=== PATIENT | male | born 2000 | race Two or more races ===

== ENCOUNTER 2025-03-15 01:40 | Inpatient (IN) ==
--- NOTE | 2025-03-15 01:57 | Emergency Department Note ---
Impression & Plan Dental abscess Admission ED Provider Note HPI: History obtained from patient. The patient is a 24-year-old gentleman who presents the emergency department from [facility] over concern for left-sided facial swelling for the past 4 days. Patient states he has had some increased pain and swelling to the left cheek over the past 4 days. He states he has also had an ache in the upper part of his jaw with possible dental infection. Patient states that is to the point where he is having difficulty opening his mouth now. On arrival here to the ED the patient is mildly tachycardic but otherwise hemodynamically stable, he is afebrile on arrival, he is saturating well on room air without increased work of breathing. ROS: - Per HPI Differential Diagnosis: Facial cellulitis, dental abscess, sialoadenitis, peritonsillar abscess, parotiditis, amongst other potential pathologies. *Outpatient medications and allergy history reviewed. PE: General: Alert HEENT: Normocephalic, trachea midline, the left cheek is grossly swollen in comparison to the right, patient has some difficulty opening his mouth, appears to be tolerating his own secretions without issue Eyes: Extraocular eye movement is intact, no scleral erythema Pulmonary: Clear to auscultation bilaterally, no wheezing, no respiratory distress or tachypnea Cardio: Regular rate and rhythm GI: Abdomen is soft to palpation : No suprapubic tenderness MSK: No evidence of trauma or malformation of the extremities, no edema Skin: No evidence of rash Neuro: Alert, no focal deficits Psychiatric: Cooperative INDEPENDENT INTERPRETATIONS: vehicle monitor technician: (As interpreted by myself): - An order was placed for continuous cardiac monitoring - Patient was noted to be in sinus rhythm with a rate of 103 Interventions provided in ED: - IV fluid bolus, IV morphine, IV Zofran, IV Unasyn Medical Decision Making: IV was established and lab work obtained, patient was placed on cardiac catheterization technologist. Lab work shows a leukocytosis of 18.83, hemoglobin is normal, platelet count is normal, CMP does not show any evidence of any critical findings. Blood cultures were drawn, patient was ordered a dose of IV Unasyn. CT imaging of the face shows some nonspecific soft tissue swelling in the area of concern without a definite abscess. Patient does have impressive swelling grossly on exam, I discussed his presentation and CT imaging results with on-call OMFS, Dr. Mccurdy, he is in agreement for consultation and recommends inpatient admission for IV antibiotics and he will determine later if the patient needs operative intervention. I discussed this with the patient and he is in agreement for admission. Case was discussed with the on-call hospitalist, Dr. Quiroz, and the patient was placed for admission in stable condition. Consultants/Discussions held with other healthcare providers: - OMFS, Dr. Mccurdy - Hospitalist, Dr. Quiroz Disposition discussion held by myself with: - Patient and retirement facility staff at the bedside Diagnosis: 1. Left-sided facial infection, acute 2. Leukocytosis, acute Disposition: Admission Stalin Dobbs DO Emergency Medicine Past Med/Surg History Problem List (Updated 03/15/25 @ 05:19 by Stalin Dobbs DO) Dental abscess (Acute) Social History Smoking Status: Former smoker Tobacco Type: Cigarettes Preferred Language: Tajik Results & Data (ED) Vital Signs Vital Signs - 24 hr 03/15/25 01:44 03/15/25 02:19 Temperature 36.8 C Temperature Source Oral Pulse Rate 111 H 111 H Respiratory Rate 18 Respiratory Effort / Characteristics Non-Labored Spontaneous Respiratory Depth Normal Respiratory Pattern Regular Blood Pressure 105/63 Blood Pressure Mean 77 Blood Pressure Position Sitting Pulse Oximetry 98 Oxygen Delivery Method Room Air Sepsis Recent Fever Within 48 Hours Yes Sepsis New/Unexplained Change in Mental Status N/A Sepsis Action Taken by Nursing No Action Required Laboratory Data 03/15/25 02:15 03/15/25 02:15 Lab Results 03/15/25 Range/Units 02:15 WBC 18.83 H (4.8-10.8) K/ul RBC 5.02 (4.70-6.10) M/uL Hgb 14.4 (14.0-18.0) g/dl Hct 43.1 (42.0-52.0) % MCV 85.9 (80.0-100.0) fL MCH 28.7 (25.0-34.0) pg MCHC 33.4 (32.0-36.0) g/dL RDW Std Deviation 40.3 (36.4-46.3) fL RDW Coeff of Rashaad 12.9 (11.5-14.5) % Plt Count 172 (130-400) K/uL MPV 10.1 (9.4-12.4) fL Immature Gran % (Auto) 1.2 % Neut % (Auto) 90.5 % Lymph % (Auto) 3.2 % Hartley % (Auto) 4.9 % Eos % (Auto) 0.0 % Baso % (Auto) 0.2 % Neut # (Auto) 17.05 H (1.40-6.50) K/uL Lymph # (Auto) 0.60 L (1.20-3.40) K/uL Hartley # (Auto) 0.92 H (0.11-0.59) K/uL Eos # (Auto) 0.00 (0.00-0.50) K/uL Baso # (Auto) 0.03 (0.00-0.20) K/uL Immature Gran # (Auto) 0.23 H (0.01-0.20) K/uL Echinocytes 2+ Sodium 138 (136-145) mmol/L Potassium 3.8 (3.5-5.1) mmol/L Chloride 102 (98-107) mmol/L Carbon Dioxide 25 (21-32) mmol/L Anion Gap 11 (3-11) BUN 16 (6-23) mg/dl Creatinine 1.16 (0.6-1.4) mg/dl Est Cr Clr Drug Dosing 96.6 ml/min eGFR 90.20 BUN/Creatinine Ratio 13.8 (10-20) Glucose 96 (70-99(Fasting)) mg/dl Calcium 9.9 (8.6-10.3) mg/dl Total Bilirubin 1.4 H (0.2-1.0) mg/dl AST 19 (13-39) U/L ALT 17 (7-52) U/L Alkaline Phosphatase 98 (34-104) U/L Total Protein 8.0 (6.0-8.3) gm/dl Albumin 4.4 (3.4-5.0) gm/dl Globulin 3.6 (2.5-4.0) gm/dl Albumin/Globulin Ratio 1.2 (0.9-2) Administered Medications Discontinued Medications Sodium Chloride (Nss) 500 mls @ 999 mls/hr IV .Q31M STA Stop: 03/15/25 02:25 Last Infusion: 03/15/25 03:00 Dose: Infused Documented By: Admin: 03/15/25 02:14 Dose: 999 mls/hr Documented By: CATE Ampicillin Sodium/Sulbactam Sodium (Unasyn) 3,000 mg in 100 mls @ 200 mls/hr IV NOW STA Stop: 03/15/25 02:25 Last Infusion: 03/15/25 03:00 Dose: Infused Documented By: Admin: 03/15/25 02:14 Dose: 200 mls/hr Documented By: CATE Ioversol (Optiray 320 100ml) 100 ml IV ONCE ONE Stop: 03/15/25 03:07 Last Admin: 03/15/25 03:08 Dose: 93 ml Documented By: ANNA Morphine Sulfate (Morphine Sulfate 4 Mg/Ml 1 Ml Carp\Vial) 4 mg IV NOW STA Stop: 03/15/25 01:56 Last Admin: 03/15/25 02:14 Dose: 4 mg Documented By: CATE Morphine Sulfate (Morphine Sulfate 4 Mg/Ml 1 Ml Carp\Vial) 4 mg IV NOW STA Stop: 03/15/25 04:33 Last Admin: 03/15/25 04:45 Dose: 4 mg Documented By: CATE Ondansetron HCl (Ondansetron Inj 2 Mg/Ml 2 Ml Vial) 4 mg IV NOW STA Stop: 03/15/25 01:56 Last Admin: 03/15/25 02:14 Dose: 4 mg Documented By: CATE Imaging Data Radiologist's Impression: Face CT 03/15/25 01:55 EXAM: CT facial bones w con CLINICAL HISTORY: L-sided facial swelling x 4 days. TECHNIQUE: Contrast-enhanced CT Scan of the facial bones was performed, with sagittal and coronal multiplanar reconstruction. 93 ml Optiray 320 was administered as IV contrast. One of the following dose reduction techniques was utilized for this exam: Automated exposure control, adjustment of the mA and/or kV according to patient size, or use of iterative reconstruction. COMPARISON: None. FINDINGS: Sinuses: A left maxillary sinus medial retention cyst is noted. There is no evidence of sinusitis, mucosal thickening, or fluid levels. The osteomeatal complexes are patent. Nasal Cavity: The nasal cavity is unremarkable. There are no masses, polyps, or deviations. Orbits: The orbits are normal in size and shape. The extraocular muscles and optic nerves are normal. There is no evidence of orbital masses or proptosis. Maxilla and Mandible: There is a normal appearance of the maxillary and mandibular bones. No fractures or lytic or sclerotic lesions are seen. Multiple carious teeth are noted, some of them showing periapical hypodensities. Facial Bones: No fractures or deformities are identified. The zygomatic arches, nasal bones, and other facial structures are intact. Soft Tissues: The left buccal soft tissue shows diffuse fat stranding with associated overlying subcutaneous tissue edema and thickening of the platysma and left sternomastoid muscle. The left medial pterygoid muscle is thickened with heterogeneous CT density and edematous foci. This process extends into the soft tissue abutting both the mandibular and maxillary bones, as well as the inferior wall of the left maxillary sinus. Associated reactionary edematous changes are noted in the soft palate, encroaching upon and narrowing the oropharynx. Multiple enlarged reactive-appearing left group I and II lymph nodes are seen. There is no related bony involvement and no definite localized fluid collections to account for abscess formation. Salivary Glands: The left submandibular gland is diffusely enlarged and edematous, possibly reactive. The right parotid, submandibular, and sublingual glands are normal. Vascular Structures: There is a normal enhancement of the facial vascular structures. No evidence of vascular malformations or aneurysms. Temporomandibular Joints (TMJ): There is a normal appearance of the TMJ bilaterally. No evidence of joint effusion, degenerative changes, or dislocation. IMPRESSION: 1. CT features are impressive for left-sided buccal edematous changes, likely post-traumatic, with associated reactionary muscle, submandibular gland, and soft palate edema encroaching upon and narrowing the oropharynx. Superimposed inflammatory changes could not be excluded; needs clinical/laboratory correlation. 2. No definite abscess formation or bone involvement. 3. Multiple reactionary-appearing enlarged cervical lymph nodes. 4. Left maxillary retention cyst. Electronically signed by Pierre Lorenzana 03-15-2025 04:25 AM Discharge Plan Visit Data Chief Complaint: Dental/Oral Stated Complaint: ABCESS TOOTH ED Provider: Stalin Dobbs Discharge Problem: Dental abscess Patient Disposition: Admitted As Inpatient Condition: Fair Forms Stand Alone Forms: [facility] Referrals Referrals: PCP,NO [Physician] -
[2025-03-15] MEDS: SODIUM CHLORIDE 0.9% 500 ML IV STA (02:14)
[2025-03-15] MEDS: ONDANSETRON INJ 2 MG/ML 2 ML VIAL IV STA (02:14)
[2025-03-15] MEDS: MoRPHine SULFATE 4 MG/ML 1 ML CARP\\VIAL IV STA ×2 (02:14→04:45)
[2025-03-15] MEDS: AMPICILLIN/SULBACTAM SOD 3,000 MG/100 ML BAG IV STA (02:14)
[2025-03-15 02:28] LABS: Hematocrit (blood only) 43.1 % (42.0-52.0); Hemoglobin 14.4 g/dl (14.0-18.0); Mean Corpuscular Hemoglobin 28.7 pg (25.0-34.0); Mean Corpuscular Volume 85.9 fL (80.0-100.0); Platelet Count 172 K/uL (130-400); RDW Standard Deviation 40.3 fL (36.4-46.3); Red Blood Count 5.02 M/uL (4.70-6.10); White Blood Count 18.83 K/ul (4.8-10.8)
[2025-03-15 02:47] LABS: Alanine Aminotransferase 17.0 U/L (7-52); Albumin Globulin Ratio 1.2 (0.9-2); Albumin Level 4.4 gm/dl (3.4-5.0); Alkaline Phosphatase 98.0 U/L (34-104); Anion Gap 11.0 (3-11); Bilirubin,Total 1.4 mg/dl (0.2-1.0); Blood Urea Nitrogen 16.0 mg/dl (6-23); Calcium 9.9 mg/dl (8.6-10.3); Carbon Dioxide 25.0 mmol/L (21-32); Chloride 102.0 mmol/L (98-107); Creatinine Clr Calc Pharmacy 96.6 ml/min; Globulin 3.6 gm/dl (2.5-4.0); Glucose 96.0 mg/dl (70-99(Fasting)); Potassium 3.8 mmol/L (3.5-5.1); Sodium 138.0 mmol/L (136-145); Total Protein 8.0 gm/dl (6.0-8.3)
[2025-03-15 02:56] LABS: Immature Granulocytes # (auto) 0.23 K/uL (0.01-0.20); Immature Granulocytes % (auto) 1.2 %
[2025-03-15] MEDS: OPTIRAY 320 100ml IV ONE (03:08)
--- NOTE | 2025-03-15 04:25 | CT Scan Report ---
EXAM: CT facial bones w con CLINICAL HISTORY: L-sided facial swelling x 4 days. TECHNIQUE: Contrast-enhanced CT Scan of the facial bones was performed, with sagittal and coronal multiplanar reconstruction. 93 ml Optiray 320 was administered as IV contrast. One of the following dose reduction techniques was utilized for this exam: Automated exposure control, adjustment of the mA and/or kV according to patient size, or use of iterative reconstruction. COMPARISON: None. FINDINGS: Sinuses: A left maxillary sinus medial retention cyst is noted. There is no evidence of sinusitis, mucosal thickening, or fluid levels. The osteomeatal complexes are patent. Nasal Cavity: The nasal cavity is unremarkable. There are no masses, polyps, or deviations. Orbits: The orbits are normal in size and shape. The extraocular muscles and optic nerves are normal. There is no evidence of orbital masses or proptosis. Maxilla and Mandible: There is a normal appearance of the maxillary and mandibular bones. No fractures or lytic or sclerotic lesions are seen. Multiple carious teeth are noted, some of them showing periapical hypodensities. Facial Bones: No fractures or deformities are identified. The zygomatic arches, nasal bones, and other facial structures are intact. Soft Tissues: The left buccal soft tissue shows diffuse fat stranding with associated overlying subcutaneous tissue edema and thickening of the platysma and left sternomastoid muscle. The left medial pterygoid muscle is thickened with heterogeneous CT density and edematous foci. This process extends into the soft tissue abutting both the mandibular and maxillary bones, as well as the inferior wall of the left maxillary sinus. Associated reactionary edematous changes are noted in the soft palate, encroaching upon and narrowing the oropharynx. Multiple enlarged reactive-appearing left group I and II lymph nodes are seen. There is no related bony involvement and no definite localized fluid collections to account for abscess formation. Salivary Glands: The left submandibular gland is diffusely enlarged and edematous, possibly reactive. The right parotid, submandibular, and sublingual glands are normal. Vascular Structures: There is a normal enhancement of the facial vascular structures. No evidence of vascular malformations or aneurysms. Temporomandibular Joints (TMJ): There is a normal appearance of the TMJ bilaterally. No evidence of joint effusion, degenerative changes, or dislocation. IMPRESSION: 1. CT features are impressive for left-sided buccal edematous changes, likely post-traumatic, with associated reactionary muscle, submandibular gland, and soft palate edema encroaching upon and narrowing the oropharynx. Superimposed inflammatory changes could not be excluded; needs clinical/laboratory correlation. 2. No definite abscess formation or bone involvement. 3. Multiple reactionary-appearing enlarged cervical lymph nodes. 4. Left maxillary retention cyst. Electronically signed by Pierre Lorenzana 03-15-2025 04:25 AM
[2025-03-15] MEDS ORDERED: ONDANSETRON INJ 2 MG/ML 2 ML VIAL IV PRN ×2 (05:40→17:46)
[2025-03-15] MEDS ORDERED: ALBUT/IPRATROP 3MG/0.5MG NEB 3 ML VIAL NEB PRN (05:45)
[2025-03-15] MEDS ORDERED: ALBUTEROL HFA 8 GM INHALER INH PRN (05:45)
[2025-03-15] MEDS: SODIUM CHLORIDE 0.9% 1,000 ML IV SCH (05:57)
[2025-03-15] MEDS: ACETAMINOPHEN 1,000 MG/100 ML VIAL IV PRN (06:00)
--- NOTE | 2025-03-15 06:00 | History & Physical Report ---
Date of Service March 15, 2025 Assessment & Plan (1) Facial swelling: Plan: 24-year-old male with past medical history significant for asthma coming for snf with left facial swelling and pain. Patient states left side of the face started swelling since last Wednesday. It rapidly progressed. Currently not able to open his mouth. Not able to eat. Says yesterday had some fever. Says he has asthma and needed to use inhalers as he was feeling short of breath. Denies headache. No runny nose or sore throat. No cough. No chest pain. Was nauseous. No abdominal pain. Normal bowel and bladder movements. Denies any rash. Hemodynamics are okay. Facial swelling On left side Leukocytosis Possible dental infection ER discussed CAT scan findings with the oral surgery Started on Unasyn N.p.o. IV fluids Pain control Oral surgery consult for further recommendations Asthma Had some shortness of breath CAT scan also showing some narrowing of oropharynx Inhalers as needed Monitor med/telemetry. DVT prophylaxis SCDs Disposition Med/surg History of Present Illness Chief Complaint: Facial/dental infection Primary Care Provider: [facility] 24-year-old male with past medical history significant for asthma coming for snf with left facial swelling and pain. Patient states left side of the face started swelling since last Wednesday. It rapidly progressed. Currently not able to open his mouth. Not able to eat. Says yesterday had some fever. Says he has asthma and needed to use inhalers as he was feeling short of breath. Denies headache. No runny nose or sore throat. No cough. No chest pain. Was nauseous. No abdominal pain. Normal bowel and bladder movements. Denies any rash. Hemodynamics are okay. Past medical history. As mentioned above. Past surgical history. Denies any surgeries. Social history. Says he used to smoke weed and last time he smoked was year ago. Denies any alcohol use. Family history. Denies any family history. Allergies Allergy/AdvReac Type Severity Reaction Status Date / Time No Known Allergies Allergy Verified 03/15/25 05:49 Home Medications Medication Instructions Recorded Confirmed Type No Known Home Medications 03/15/25 03/15/25 History Past Med/Surg History Problem List (Updated 03/15/25 @ 07:21 by Warner Mccurdy DMD) Inflammation of palate Carious teeth Facial swelling Dental abscess (Acute) Social History Smoking Status: Former smoker Tobacco Type: Cigarettes Preferred Language: Latvian Review of Systems Review of Systems: All systems reviewed & are unremarkable except as noted in HPI & below Physical Exam Physical Exam: General- Not in distress Head- Left side of face is swollen Eyes- PERRL, EOMI, anicteric ENT- not able to open mouth. Neck- supple, no JVD. Lungs- clear to auscultation no wheezing or crackles Heart- regular rhythm; no murmur, no gallop. Abdomen- normal bowel sounds, soft, nontender, no distension Extremities- no pretibial edema, no erythema seen Neuro- alert, oriented PERRL, no facial palsy; no dysarthria; moves extremities Results & Data Results & Data Vital Signs (Past 12 Hours) Vital Signs Temp Pulse Resp BP Pulse Ox O2 Del Method 03/15/25 02:19 111 H 03/15/25 01:44 36.8 C 111 H 18 105/63 98 Room Air Diagnostic Findings Laboratory Results WBC 18.83 K/ul (4.8-10.8) H 03/15/25 02:15 RBC 5.02 M/uL (4.70-6.10) 03/15/25 02:15 Hgb 14.4 g/dl (14.0-18.0) 03/15/25 02:15 Hct 43.1 % (42.0-52.0) 03/15/25 02:15 MCV 85.9 fL (80.0-100.0) 03/15/25 02:15 MCH 28.7 pg (25.0-34.0) 03/15/25 02:15 MCHC 33.4 g/dL (32.0-36.0) 03/15/25 02:15 RDW Std Deviation 40.3 fL (36.4-46.3) 03/15/25 02:15 RDW Coeff of Rashaad 12.9 % (11.5-14.5) 03/15/25 02:15 Plt Count 172 K/uL (130-400) 03/15/25 02:15 MPV 10.1 fL (9.4-12.4) 03/15/25 02:15 Immature Gran % (Auto) 1.2 % 03/15/25 02:15 Neut % (Auto) 90.5 % 03/15/25 02:15 Lymph % (Auto) 3.2 % 03/15/25 02:15 [place] % (Auto) 4.9 % 03/15/25 02:15 Eos % (Auto) 0.0 % 03/15/25 02:15 Baso % (Auto) 0.2 % 03/15/25 02:15 Neut # (Auto) 17.05 K/uL (1.40-6.50) H 03/15/25 02:15 Lymph # (Auto) 0.60 K/uL (1.20-3.40) L 03/15/25 02:15 [place] # (Auto) 0.92 K/uL (0.11-0.59) H 03/15/25 02:15 Eos # (Auto) 0.00 K/uL (0.00-0.50) 03/15/25 02:15 Baso # (Auto) 0.03 K/uL (0.00-0.20) 03/15/25 02:15 Immature Gran # (Auto) 0.23 K/uL (0.01-0.20) H 03/15/25 02:15 Echinocytes 2+ 03/15/25 02:15 Sodium 138 mmol/L (136-145) 03/15/25 02:15 Potassium 3.8 mmol/L (3.5-5.1) 03/15/25 02:15 Chloride 102 mmol/L (98-107) 03/15/25 02:15 Carbon Dioxide 25 mmol/L (21-32) 03/15/25 02:15 Anion Gap 11 (3-11) 03/15/25 02:15 BUN 16 mg/dl (6-23) 03/15/25 02:15 Creatinine 1.16 mg/dl (0.6-1.4) 03/15/25 02:15 Est Cr Clr Drug Dosing 96.6 ml/min 03/15/25 02:15 eGFR 90.20 03/15/25 02:15 BUN/Creatinine Ratio 13.8 (10-20) 03/15/25 02:15 Glucose 96 mg/dl (70-99(Fasting)) 03/15/25 02:15 Calcium 9.9 mg/dl (8.6-10.3) 03/15/25 02:15 Total Bilirubin 1.4 mg/dl (0.2-1.0) H 03/15/25 02:15 AST 19 U/L (13-39) 03/15/25 02:15 ALT 17 U/L (7-52) 03/15/25 02:15 Alkaline Phosphatase 98 U/L (34-104) 03/15/25 02:15 Total Protein 8.0 gm/dl (6.0-8.3) 03/15/25 02:15 Albumin 4.4 gm/dl (3.4-5.0) 03/15/25 02:15 Globulin 3.6 gm/dl (2.5-4.0) 03/15/25 02:15 Albumin/Globulin Ratio 1.2 (0.9-2) 03/15/25 02:[address] 03/15/25 01:55 EXAM: CT facial bones w con CLINICAL HISTORY: L-sided facial swelling x 4 days. TECHNIQUE: Contrast-enhanced CT Scan of the facial bones was performed, with sagittal and coronal multiplanar reconstruction. 93 ml Optiray 320 was administered as IV contrast. One of the following dose reduction techniques was utilized for this exam: Automated exposure control, adjustment of the mA and/or kV according to patient size, or use of iterative reconstruction. COMPARISON: None. FINDINGS: Sinuses: A left maxillary sinus medial retention cyst is noted. There is no evidence of sinusitis, mucosal thickening, or fluid levels. The osteomeatal complexes are patent. Nasal Cavity: The nasal cavity is unremarkable. There are no masses, polyps, or deviations. Orbits: The orbits are normal in size and shape. The extraocular muscles and optic nerves are normal. There is no evidence of orbital masses or proptosis. Maxilla and Mandible: There is a normal appearance of the maxillary and mandibular bones. No fractures or lytic or sclerotic lesions are seen. Multiple carious teeth are noted, some of them showing periapical hypodensities. Facial Bones: No fractures or deformities are identified. The zygomatic arches, nasal bones, and other facial structures are intact. Soft Tissues: The left buccal soft tissue shows diffuse fat stranding with associated overlying subcutaneous tissue edema and thickening of the platysma and left sternomastoid muscle. The left medial pterygoid muscle is thickened with heterogeneous CT density and edematous foci. This process extends into the soft tissue abutting both the mandibular and maxillary bones, as well as the inferior wall of the left maxillary sinus. Associated reactionary edematous changes are noted in the soft palate, encroaching upon and narrowing the oropharynx. Multiple enlarged reactive-appearing left group I and II lymph nodes are seen. There is no related bony involvement and no definite localized fluid collections to account for abscess formation. Salivary Glands: The left submandibular gland is diffusely enlarged and edematous, possibly reactive. The right parotid, submandibular, and sublingual glands are normal. Vascular Structures: There is a normal enhancement of the facial vascular structures. No evidence of vascular malformations or aneurysms. Temporomandibular Joints (TMJ): There is a normal appearance of the TMJ bilaterally. No evidence of joint effusion, degenerative changes, or dislocation. IMPRESSION: 1. CT features are impressive for left-sided buccal edematous changes, likely post-traumatic, with associated reactionary muscle, submandibular gland, and soft palate edema encroaching upon and narrowing the oropharynx. Superimposed inflammatory changes could not be excluded; needs clinical/laboratory correlation. 2. No definite abscess formation or bone involvement. 3. Multiple reactionary-appearing enlarged cervical lymph nodes. 4. Left maxillary retention cyst. Electronically signed by Pierre Lorenzana 03-15-2025 04:25 AM Code Status & VTE Plan VTE Prophylaxis Plan VTE Prophylaxis will be ordered: Yes
--- NOTE | 2025-03-15 07:07 | Oral/Maxillofacial Consult ---
Date of Consultation March 15, 2025 Assessment & Plan (1) Facial swelling: (2) Dental abscess: (3) Carious teeth: (4) Inflammation of palate: History of Present Illness Attending Physician: Yony Chi MD History of Present Illness Oral Maxillofacial Surgery Exam Present Complaint: I have pain/swelling/drainage from my infected teeth. Symptoms have been ongoing for a while. The patient is a 24-year-old gentleman who presents the emergency department from [facility] facility over concern for left-sided facial swelling for the past 4 days. Patient states he has had some increased pain and swelling to the left cheek over the past 4 days. He states he has also had an ache in the upper part of his jaw with possible dental infection. Patient states that is to the point where he is having difficulty opening his mouth now. On arrival here to the ED the patient is mildly tachycardic but otherwise hemodynamically stable, he is afebrile on arrival, he is saturating well on room air without increased work of breathing. Lizandro relays the story that a few days ago he started to develop acute pain in his lower left molar teeth. Over the last few days the pain turned into massive swelling of his left cheek. There is a mucobuccal swelling of the lower left jaw he has trismus and number of carious teeth and an acute swelling of his left mucobuccal fold and his cheek. From the time they brought him to the hospital till the time I saw him which was about 12 noon the swelling has increased. There is a urgency to get this abscess drained the soon as possible to prevent it from rupturing spontaneously. I reviewed with Lizandro that he has very poor dentition and many of his teeth are fractured to the gum lines and abscess. There is no doubt he will need extensive dental treatment in the future. At now at this time we are just concentrating on the teeth involving the upper and lower posterior aspect of the left side as well as draining both intraoral and extraoral the swelling of his cheek in the mucobuccal fold. I had him sign consents for intraoral and extraoral incision and drainage and removal of indicated teeth. The patient was seen in his room C6 in the emergency room and hopefully will be will be transferred to the floor once a bed is available. We are planning to take him to the OR this evening as soon as there is open time to allow for the incision and drainage as discussed above. I am will keep him overnight on IV antibiotics and assess him tomorrow and make a determination when he is able to go home on oral antibiotics. The patient is starting to have difficulty in swallowing and therefore I feel that this is an urgent case and needs to be drained today as soon as OR time is available. The patient is n.p.o. his past medical history is essentially noncontributory. He is in a facility run by the [facility] of [employer] security. Oral Exam: Finding-grossly carious and fractured teeth, extractions required There are number of grossly carious and fractured teeth on the lower left side the teeth that appear to be severely compromised are #18 1920 and 21 on the upper left jaw tooth #16 is totally infected and abscessed. I am not able to tell radiographically there is any other upper teeth posteriorly on the upper left side and I will determine this at the time of the incision and drainage. Regarding the infection there is gross swelling of the mucobuccal fold on the left side with extension into the cheek mucosa as well as fluctuance of the cheek area. The patient has a heavy jorge and will be shaving this to allow for a an appropriate incision and drainage of the extraoral area. Imaging: EXAM: CT facial bones w con L-sided facial swelling x 4 days. FINDINGS: Sinuses: A left maxillary sinus medial retention cyst is noted. There is no evidence of sinusitis, mucosal thickening, or fluid levels. The ostiomeatal complexes are patent. Nasal Cavity: The nasal cavity is unremarkable. There are no masses, polyps, or deviations. Orbits: The orbits are normal in size and shape. The extraocular muscles and optic nerves are normal. There is no evidence of orbital masses or proptosis. Maxilla and Mandible: There is a normal appearance of the maxillary and mandibular bones. No fractures or lytic or sclerotic lesions are seen. Multiple carious teeth are noted, some of them showing periapical hypodensities. Facial Bones: No fractures or deformities are identified. The zygomatic arches, nasal bones, and other facial structures are intact. Soft Tissues: The left buccal soft tissue shows diffuse fat stranding with associated overlying subcutaneous tissue edema and thickening of the platysma and left sternomastoid muscle. The left medial pterygoid muscle is thickened with heterogeneous CT density and edematous foci. This process extends into the soft tissue abutting both the mandibular and maxillary bones, as well as the inferior wall of the left maxillary sinus. Associated reactionary edematous changes are noted in the soft palate, encroaching upon and narrowing the oropharynx. Multiple enlarged reactive-appearing left group I and II lymph nodes are seen. There is no related bony involvement and no definite localized fluid collections to account for abscess formation. Salivary Glands: The left submandibular gland is diffusely enlarged and edematous, possibly reactive. The right parotid, submandibular, and sublingual glands are normal. Vascular Structures: There is a normal enhancement of the facial vascular structures. No evidence of vascular malformations or aneurysms. Temporomandibular Joints (TMJ): There is a normal appearance of the TMJ bilaterally. No evidence of joint effusion, degenerative changes, or dislocation. IMPRESSION: 1. CT features are impressive for left-sided buccal edematous changes, likely post-traumatic, with associated reactionary muscle, submandibular gland, and soft palate edema encroaching upon and narrowing the oropharynx. Superimposed inflammatory changes could not be excluded; needs clinical/laboratory correlation. 2. No definite abscess formation or bone involvement. 3. Multiple reactionary-appearing enlarged cervical lymph nodes. 4. Left maxillary retention cyst. Soft tissue: The left cheek is swollen, the left mucobuccal fold is grossly swollen and the cheek is almost compressing on the lower teeth as a result of the infection. There is fluctuance of the external cheek which will need incision and drainage extraorally. The teeth are in extremely poor shape. Multiple extractions are necessary The floor of the mouth, tongue, hard/soft palate, posterior pharyngeal area all with in normal limits, no pathology or abnormal findings noted. Oral Care: Overall oral care is poor Occlusion: Class I missing and fractured teeth The noted carious teeth on the left side are #18 19 20 21 upper tooth #16 as well as some other teeth on the upper left side will need to be removed to prevent ongoing infection. TMJ exam: No pop, clicking, pain, good ROM, No history of TMJ injury or dysfunction Periodontal exam: Generalized gingival tissue pathology with evidence of significant periodontal pathology. Head/Neck exam: Left facial cheek swelling,difficulty opening the mouth Neck is supple, FROM, Able to extend and flex neck w/o difficulty, no masses, no abnormalities, no airway issues, no evidence of sleep apnea. Treatment Plan: Due to the fact that this is an expanding infection and the patient is having more swelling over the last few hours there is an urgency to get this drained to soon as possible. We are hoping to get this infection drained this evening with extraction of tooth #18 19,20 21,16 and perhaps others on the top. Set up with general anesthesia in hospital due to complexity of the procedure I reviewed the treatment plan and consent with the patient Understanding was expressed. Time was given for questions regarding the surgery, risks and post op care. Discussed alternative to treatment--procedure as planned, Do not do surgery The following teeth are decayed and fractured and removal is indicated PRINCE: Risks discussed: Bleeding,Pain,swelling,infection, dry socket, delayed healing, nerve injury to face,lips,tongue,chin area which could be permanent (rare). TMJ, jaw stiffness, change in bite (rare), ear pain (referred). Sinus problems like fistula or infection. Need to leave a small root fragment in place to avoid injury to nerve or sinus. Relationship of wisdom teeth to nerve/sinus and risk of jaw fracture. Surgery to be set up this afternoon as soon as a room comes available in the operating theater. Allergies Allergy/AdvReac Type Severity Reaction Status Date / Time No Known Allergies Allergy Verified 03/15/25 05:49 Home Medications Medication Instructions Recorded Confirmed Type No Known Home Medications 03/15/25 03/15/25 History Patient History Social History Smoking Status: Former smoker Tobacco Type: Cigarettes Preferred Language: Cymro Results & Data Vital Signs (Past 12 Hours) Vital Signs Temp Pulse Pulse Resp BP BP Pulse Ox 03/15/25 07:01 97 H 20 97/65 L 97 03/15/25 07:01 84 03/15/25 06:00 92 H 20 92/68 L 97 03/15/25 06:00 03/15/25 05:00 89 17 97/62 L 96 03/15/25 04:30 90 17 100/67 97 03/15/25 04:00 104 H 20 101/65 97 03/15/25 03:30 98 H 18 102/58 L 97 03/15/25 03:00 101 H 18 108/53 L 98 03/15/25 02:30 110 H 18 108/72 95 03/15/25 02:19 111 H 03/15/25 01:55 03/15/25 01:44 36.8 C 111 H 18 105/63 98 Pulse Ox O2 Del Method O2 Del Method O2 Flow Rate 03/15/25 07:01 Room Air 03/15/25 07:01 03/15/25 06:00 Room Air 03/15/25 06:00 97 Room Air 0 03/15/25 05:00 03/15/25 04:30 03/15/25 04:00 03/15/25 03:30 03/15/25 03:00 03/15/25 02:30 Room Air 03/15/25 02:19 03/15/25 01:55 Room Air 03/15/25 01:44 Room Air PG Care Time/CCT Total # of Minutes Spent Total Time Spent with Patient: Total time spent is greater than 50% in coordination of care (as documented) at patient's floor/unit and/or counseling patient: Coding Level of Care Code 25888 OFFICE CONSULT LVL 08/06M Diagnoses Facial swelling R22.0 Dental abscess K04.7 Carious teeth K02.9 Inflammation of palate K12.1
[2025-03-15] MEDS: AMPICILLIN/SULBACTAM SOD 3,000 MG/100 ML BAG IV SCH (07:40)
[2025-03-15] MEDS: MoRPHine SULFATE 4 MG/ML 1 ML CARP\\VIAL IV PRN (11:22)
[2025-03-15] MEDS ORDERED: VANCOMYCIN CONSULT ACTIVE PRN (11:41)
[2025-03-15] MEDS: VANCOMYCIN HCL 1,500 MG in SODIUM CHLORIDE 0.9% 500 ML IV ONE (12:28)
[2025-03-15] MEDS: dexAMETHasone 4 MG in SYRINGE 0 ML IV ONE (12:50)
[2025-03-15] MEDS: PIPERACILLIN/TAZOBACTAM 4.5 GM/100 ML BAG IV ONE (12:50)
--- NOTE | 2025-03-15 12:52 | Communication Note ---
Date of Service: March 15, 2025 Patient seen and examined at bedside. He reports that he reports the swelling on the cheek is slightly increasing. He does not have any stridor. Reports pain at that site. On physical examination; Constitutional: WD/WN, vitals as above, NAD, sitting up in bed, pleasant, conversing easily Face; left cheek swollen, tenderness present, difficulty opening the mouth. Respiratory: normal respiratory effort, lungs clear to auscultation, no wheeze, rales, rhonchi. Normal insp/exp effort, no accessory muscle use Cardiovascular: RRR, no murmur, no edema Vessels: no JVD or carotid bruit Chest: normal inspection of chest Abdomen: normal bowel sounds, soft, nontender, no hepatosplenomegaly Musculoskeletal: no cyanosis or clubbing, extremities motor strength 5/5 Skin: no rashes, warm and dry normal turgor Neurologic: PERRL, EOMI, accommodation nl, no face palsy, no dysarthria CN's II- XI intact bilaterally and moves all extremities Assessment/plan Facial swelling Dental abscess Patient presents with progressive swelling, pain on the left cheek for last several days Facial CTno definitive abscess/cyst/bone involvement. Multiple reactionary en larged lymph node Leukocytosis present Antibiotic broadened to Zosyn and vancomycin. Continue on IV fluids IV Decadron 4 mg once given after discussion with oral surgery Oral surgery planning for surgery today; continue n.p.o. status Full progress note to follow tomorrow Please note the above document was generated using voice recognition software. It may contain grammatical, syntax or spelling errors. Any formal questions or concerns about the content, text or information contained within the body of this dictation should be directly addressed to the provider for clarification
--- NOTE | 2025-03-15 12:59 | Pharmacy Report ---
Pharmacy PK ABX Note - Date of Service March 15, 2025 - Assessment and Plan Assessment 24 year old M receiving vancomycin and piperacillin/tazobactam for treatment of facial/dental abscess. Pertinent microbiologic data includes: Negative MRSA Nasal Swab, blood cultures x2 are pending. * WBC on arrival 18.83 * Afebrile * SCr 1.16 (estimated CrCl 96.6 mL/min) - unknown baseline as no prior records here Day #1 of antimicrobial therapy. Plan Vancomycin * Loading dose: 1500 mg IV x 1 (given 03/15 @1230) * Maintenance dose: 1250 mg IV every 12 hours * Regimen is predicted to achieve target AUC/MAL of 400-600 mg/L.hr * Random level ordered for: 03/17/25 @0444 Pharmacy will continue to follow and will adjust dose/frequency as necessary. Thank you. Pharmacy has transitioned to AUC monitoring for vancomycin. AUC/MAL is the preferred PK/PD target and is associated with decreased risk of nephrotoxicity compared to traditional trough targets.
[2025-03-15] MEDS ORDERED: PROPOFOL IV EMULSION 10 MG/ML 20 ML VIAL IV ONE (17:31)
[2025-03-15] MEDS ORDERED: LIDOCAINE 2% 2 ML VIAL/AMP(20MG/ML) INFIL ONE (17:31)
[2025-03-15] MEDS ORDERED: ONDANSETRON INJ 2 MG/ML 2 ML VIAL ONE (17:31)
[2025-03-15] MEDS ORDERED: DEXAMETHASONE SOD INJ 4 MG/ML VIAL ONE (17:31)
[2025-03-15] MEDS ORDERED: ROCURONIUM BROMIDE 10 MG/ML 5 ML VIAL IV ONE (17:31)
[2025-03-15] MEDS ORDERED: DexMEDEtomidine HCL IV 100 MCG/ML VIAL IV ONE (17:32)
[2025-03-15] MEDS ORDERED: MIDAZOLAM HCL 1 MG/ML 2ML VIAL ONE (17:32)
--- NOTE | 2025-03-15 17:45 | Anesthesiology Consultation ---
Date of Service March 15, 2025 Assessment & Plan ASA ASA2 Proposed Anesthesia Anesthesia Type: General Risk / Benefits Reviewed With: PT / POA / Parent / Guardian, Accepts Plan and Informed Consent Obtained History Surgery Operation Date: 03/15/25 14:45 Proposed Procedures p Left Cheek Abscess Incision and Drainage (Extraoral and Intraoral) - Warner Mccurdy DMD s Extraction of Teeth - Warner Mccurdy DMD Height/Weight Height: 5 ft 6 in Weight: 78.1 kg Allergies Allergy/AdvReac Type Severity Reaction Status Date / Time No Known Allergies Allergy Verified 03/15/25 05:49 Medications Home Medications Medication Instructions Recorded Confirmed Last Taken No Known Home Medications 03/15/25 03/15/25 Unknown Active Medications Generic Name Dose Route Start Last Admin Trade Name Freq PRN Reason Stop Dose Admin Sodium Chloride 1,000 mls @ 125 mls/hr 03/15/25 05:40 03/15/25 15:50 Nss IV 03/18/25 05:39 125 mls/hr .Q8H LEONIDAS Administration Acetaminophen 1,000 mg in 100 mls @ 400 mls/hr 03/15/25 05:40 03/15/25 17:18 Ofirmev IV 03/18/25 05:39 400 mls/hr Q8H PRN Administration Pain or Fever Morphine Sulfate 3 mg 03/15/25 05:40 03/15/25 11:22 Morphine Sulfate 4 Mg/Ml 1 Ml Carp\Vial IV 03/29/25 05:39 3 mg Q4H PRN Administration Severe Pain (Scale 7, 8, 9,10) Exercise / Class Metabolic Activity II 4-5 Yardwork/Stairs/Walk up hill Past Anesthesia History No Hx of Anesthesia Complications and No Family Hx of Anesthesia Complications History of PONV No Hx of PONV and No Hx of Motion Sickness Social History Smoking Status: Former smoker Hx Alcohol Use: No Hx Substance Use: No Review of Systems denies fever/cough/ colds/ chest pain/ SOB/ BRIGID denies BRIGID Physical Exam Vital Signs Last Vital Signs Temp 37.4 C 03/15/25 16:28 Pulse 94 H 03/15/25 17:39 Resp 18 03/15/25 16:28 BP 105/67 03/15/25 16:28 Pulse Ox 96 03/15/25 16:28 O2 Del Method Room Air 03/15/25 16:28 O2 Flow Rate 0 03/15/25 06:00 ENMT Mouth: + dentition abnormality; no TMJ abnormality Thyromental Distance: > or= 3.5 Finger Breadths Mallampati Class: Other (poor mouth opening d/t pain) Neck + facial hair; neck extension not limited Respiratory normal respiratory effort; no respiratory distress Auscultation: lungs clear to auscultation bilaterally Cardiovascular Rate/Rhythm: regular rate and regular rhythm Neurologic moves all extremities Psychiatric Orientation: alert and oriented x 3 Testing Laboratory Results 03/15/25 02:15 03/15/25 02:15
[2025-03-15] MEDS ORDERED: PROMETHAZINE HCL 6.25 MG in SODIUM CHLORIDE 0.9% 50 ML IV PRN (17:46)
[2025-03-15] MEDS ORDERED: HYDROmorphone INJ 1 MG/ML SYRINGE IV PRN (17:46)
[2025-03-15] MEDS ORDERED: ATROPINE SULFATE 0.1 MG/ML 10ML SYR IV PRN (17:46)
[2025-03-15] MEDS ORDERED: SUCCINYLCHOLINE 100MG/5ML SYR IV ONE (18:14)
[2025-03-15] MEDS: CHLORHEXIDINE GLUCONATE 0.12% 480 ML MT ONE (18:51)
[2025-03-15] MEDS: BUPIVACAINE/EPINEPHRINE 0.5% 1:200,000 1.8 ML CARP ONE (19:07)
--- NOTE | 2025-03-15 19:27 | Post Operative Brief Note ---
PG Immediate Post Op with CF Date of Surgery March 15, 2025 Pre & Post Diagnosis Operation Date: 03/15/25 14:45 Pre-Op Diagnosis: Facial Abscess Post-Op Diagnosis: Facial Abscess I identified the patient and participated in the time-out.: Yes Procedure Operation Date: 03/15/25 14:45 Actual Procedures p Incision and Drainage of Left Facial Abscess; Extraction of #17, 18, 19, 20 and 16 Teeth - Warner Mccurdy, KALIN Surgeon Warner Mccurdy, KALIN [employer] Professor none Estimated Blood Loss 10 Findings Consistent with Post-Op Diagnosis acute infection of cheek left side carious 16,17,18,19,20 Specimens Specimen Description: Culture #1-Left Outside Facial Abscess Culture #2- Left Inside Facial Abscess Drains Goldsmith Drain (05/13 in) Complications none Disposition Accompanied Patient To Recovery: Yes
--- NOTE | 2025-03-15 19:59 | Anesthesiology Progress Note ---
Date of Service March 15, 2025 Anesthesia Post Procedure Vital Signs Vital Signs: Temp Pulse Pulse Pulse Resp BP BP 03/15/25 19:50 36.2 C L 88 15 120/81 03/15/25 19:40 87 12 128/83 03/15/25 19:30 84 13 112/73 03/15/25 19:23 36.7 C 91 H 12 108/80 03/15/25 17:40 36.8 C 90 18 120/65 03/15/25 17:39 94 H 03/15/25 16:28 37.4 C 88 18 105/67 03/15/25 15:54 85 18 97/58 L 03/15/25 08:18 85 20 95/64 L 03/15/25 07:01 97 H 20 97/65 L 03/15/25 07:01 84 03/15/25 06:00 92 H 20 92/68 L 03/15/25 06:00 03/15/25 05:00 89 17 97/62 L 03/15/25 04:30 90 17 100/67 03/15/25 04:00 104 H 20 101/65 03/15/25 03:30 98 H 18 102/58 L 03/15/25 03:00 101 H 18 108/53 L 03/15/25 02:30 110 H 18 108/72 03/15/25 02:19 111 H 03/15/25 01:55 03/15/25 01:44 36.8 C 111 H 18 105/63 Pulse Ox Pulse Ox O2 Del Method O2 Del Method O2 Flow Rate 03/15/25 19:50 97 Room Air 03/15/25 19:40 97 Room Air 03/15/25 19:30 97 Room Air 03/15/25 19:23 98 Room Air 03/15/25 17:40 98 Room Air 03/15/25 17:39 03/15/25 16:28 96 Room Air 03/15/25 15:54 96 Room Air 03/15/25 08:18 97 Room Air 03/15/25 07:01 97 Room Air 03/15/25 07:01 03/15/25 06:00 97 Room Air 03/15/25 06:00 97 Room Air 0 03/15/25 05:00 96 03/15/25 04:30 97 03/15/25 04:00 97 03/15/25 03:30 97 03/15/25 03:00 98 03/15/25 02:30 95 Room Air 03/15/25 02:19 03/15/25 01:55 Room Air 03/15/25 01:44 98 Room Air Pain Intensity Teeth: Pain Intensity: 5 Left Cheek: Pain Intensity: 5 Transfer of Care Handoff Completed per policy Notes Mental Status: alert / awake / arousable Patient Amnestic to Procedure: Yes Nausea / Vomiting: adequately controlled Pain: adequately controlled Airway Patency, RR, SpO2: stable & adequate BP & HR: stable & adequate Hydration State: stable & adequate Anesthetic Complications: no major complications apparent
[2025-03-15] MEDS: PHENYLEPHRINE 1% NA SPR 15 ML BTL ONE (21:49)
[2025-03-15] MEDS ORDERED: Nursing to Pharmacy Communication SCH (22:00)
[2025-03-15] MEDS: VANCOMYCIN HCL 1,250 MG in SODIUM CHLORIDE 0.9% 250 ML IV SCH (22:55)
[2025-03-15] MEDS: PIPERACILLIN/TAZOBACTAM 4.5 GM/100 ML BAG IV SCH (23:06)
[2025-03-16 08:02] LABS: Hematocrit (blood only) 38.4 % (42.0-52.0); Hemoglobin 12.3 g/dl (14.0-18.0); Mean Corpuscular Hemoglobin 27.8 pg (25.0-34.0); Mean Corpuscular Volume 86.9 fL (80.0-100.0); Platelet Count 187 K/uL (130-400); RDW Standard Deviation 41.8 fL (36.4-46.3); Red Blood Count 4.42 M/uL (4.70-6.10); White Blood Count 25.14 K/ul (4.8-10.8)
[2025-03-16 08:20] LABS: Chloride 105.0 mmol/L (98-107); Creatinine Clr Calc Pharmacy 119.2 ml/min; Potassium 3.5 mmol/L (3.5-5.1); Sodium 138.0 mmol/L (136-145)
[2025-03-16 08:29] LABS: Anion Gap 9.0 (3-11); Blood Urea Nitrogen 12.0 mg/dl (6-23); Calcium 8.9 mg/dl (8.6-10.3); Carbon Dioxide 24.0 mmol/L (21-32); Glucose 124.0 mg/dl (70-99(Fasting))
[2025-03-16 08:38] VITALS: TEMP 98.4
[2025-03-16 08:57] LABS: Immature Granulocytes # (auto) 1.34 K/uL (0.01-0.20); Immature Granulocytes % (auto) 5.3 %
--- NOTE | 2025-03-16 09:20 | Hospitalist Progress Note ---
Date of Service March 16, 2025 Assessment & Plan (1) Facial swelling: Plan: 24-year-old male with past medical history significant for asthma coming for skilled nursing with left facial swelling and pain. Patient states left side of the face started swelling since last Wednesday. It rapidly progressed. Facial abscess Status post I&D of left facial abscess, extraction of #17, 18, 19, 20 and 16 Teeth Patient presented to the hospital with facial swelling, fever and inability to open the mouth Underwent surgery on 03/15 Leukocytosis present Gram stain from wound growing few gram-positive cocci, rare gram-positive bacilli Will continue on current antibiotic for the time being; follow-up on final culture and sensitivity Continue on full liquid diet Pain control with morphine and Tylenol Asthma Had some shortness of breath CAT scan also showing some narrowing of oropharynx Inhalers as needed Monitor med/telemetry. DVT prophylaxis SCDs Disposition Med/surg Please note the above document was generated using voice recognition software. It may contain grammatical, syntax or spelling errors. Any formal questions or concerns about the content, text or information contained within the body of this dictation should be directly addressed to the provider for clarification Admission and Anticipated Discharge Date Admission Date: March 15, 2025 Subjective Patient seen and examined at bedside. He reports that he is feeling much better after the surgery. No fever or chills overnight. Review of Systems Review of Systems: All systems reviewed & are unremarkable except as noted in Subjective Physical Exam Physical Exam: Constitutional: WD/WN, vitals as above, NAD, sitting up in bed, pleasant, conversing easily Face; Dressing in place over left cheek; swelling present. Appropriately tender. Respiratory: normal respiratory effort, lungs clear to auscultation, no wheeze, rales, rhonchi. Normal insp/exp effort, no accessory muscle use Cardiovascular: RRR, no murmur, no edema Vessels: no JVD or carotid bruit Chest: normal inspection of chest Abdomen: normal bowel sounds, soft, nontender, no hepatosplenomegaly Musculoskeletal: no cyanosis or clubbing, extremities motor strength 5/5 Skin: no rashes, warm and dry normal turgor Neurologic: PERRL, EOMI, accommodation nl, no face palsy, no dysarthria CN's II- XI intact bilaterally and moves all extremities Results & Data Results & Data Vital Signs (Past 12 Hours) Vital Signs Temp Pulse Pulse Resp BP Pulse Ox Pulse Ox 03/16/25 08:38 36.9 C 78 18 102/62 95 03/16/25 06:00 97 03/16/25 05:05 37.0 C 89 18 94/50 L 98 03/15/25 23:40 37.0 C 91 H 16 96/50 L 97 03/15/25 22:28 37.1 C 85 20 105/65 97 03/15/25 22:03 79 03/15/25 21:24 37.3 C 86 18 110/74 95 O2 Del Method O2 Del Method 03/16/25 08:38 Room Air 03/16/25 06:00 Room Air 03/16/25 05:05 Room Air 03/15/25 23:40 Room Air 03/15/25 22:28 Room Air 03/15/25 22:03 03/15/25 21:24 Room Air
[2025-03-16 09:30] LABS: Magnesium 2.1 mg/dl (1.7-2.4)
--- NOTE | 2025-03-16 09:31 | Progress Note ---
Date of Service March 16, 2025 Assessment & Plan Admission and Anticipated Discharge Date Admission Date: March 15, 2025 Subjective Post Op infection evaluation at 18 hours The infected area is resolving very well. Swelling is decreasing and the tissue is getting back to normal in size and texture. Very slight further drainage is noted. Drain will be removed Wednesday in my office Cultures were reviewed. Infection has responded very well to the antibiotics, extractions and the I and D.Still more time needed for complete resolution I requested that the patient continue with massage, heat and wound care. At this time the area is well healed and responded well to treatment, from oral surgery point of view he can be discharged back to [facility], will need oral antibiotics--Augmentin 875 bid x 10 days, pain meds as needed, change facial dressing as needed and Return to my office WednesdayMar 19 for drain removal My be discharge back to [facility] as pre medical service Results & Data Vital Signs (Past 12 Hours) Vital Signs Temp Pulse Pulse Resp BP Pulse Ox Pulse Ox 03/16/25 08:38 36.9 C 78 18 102/62 95 03/16/25 06:00 97 03/16/25 05:05 37.0 C 89 18 94/50 L 98 03/15/25 23:40 37.0 C 91 H 16 96/50 L 97 03/15/25 22:28 37.1 C 85 20 105/65 97 03/15/25 22:03 79 O2 Del Method O2 Del Method 03/16/25 08:38 Room Air 03/16/25 06:00 Room Air 03/16/25 05:05 Room Air 03/15/25 23:40 Room Air 03/15/25 22:28 Room Air 03/15/25 22:03 PG Care Time/CCT Total # of Minutes Spent Total Time Spent with Patient: Total time spent is greater than 50% in coordination of care (as documented) at patient's floor/unit and/or counseling patient: Coding Level of Care Code None
--- NOTE | 2025-03-16 09:49 | Operative Report ---
PG Post Operative Report Pre & Post Diagnosis Operation Date: 03/15/25 14:45 Pre-Op Diagnosis: Facial Abscess Post-Op Diagnosis: Facial Abscess I identified the patient and participated in the time-out.: Yes Procedure Operation Date: 03/15/25 14:45 Actual Procedures p Incision and Drainage of Left Facial Abscess; - Warner Mccurdy DMD s Extraction of #17, 18, 19, 20 and 16 Teeth - Warner Mccurdy DMD Surgeon Warner Mccurdy DMD Coremaker Floor none Estimated Blood Loss 10 Findings Consistent with Post-Op Diagnosis Specimens I&D face Drains 1/4 Helen left oral and face (cheek) Anesthesia Type General Regional Complications none Disposition Accompanied Patient To Recovery: Yes Indications acute facial infection left cheek Description of Procedure p Incision and Drainage left mandibular vestibule and cheek space Abscess; Extraction of teeth 16,17,18,19,20 - Warner Mccurdy DMD ICD 10 K12.2 , L03.211 CPT 46731 I & D of deep subcutaneous abscess of the cheek CPT 19949 I & D vestibule space of left mandible (complex) D7210 X 5 for teeth 16,17,18,19,20 Once cleared for surgery general anesthesia was achieved, the eyes were protected by the anesthesia dept criteria. A time out was take for patient ID, antibiotics, equipment and position verifica tion once all agreed the procedure began. Local anesthesia using Marcaine with a vasoconstrictor ( 1.8 ml per site) given into left posterior maxilla A throat pack was placed after the oral cavity was irrigated with saline. Once a surgical level of anesthesia was obtained and the local anesthesia was given time for the blocks the surgery was started. I turned my attention to the infection which was located in the in the left cheek,left vestibule, left tuberosity area, Incision and Drainage left vestibule mandibular, external cheek, (infratemporal and temporalis spaces) CPT 97563 I & D vestibule space of left mandible (complex) Using a 15 blade an incision was made in the posterior aspect of the vestibule area lower and upper left side. Once the incision was made a lot of pus extruded from the site. This drainage was cultured for anaerobic and aerobic bacteria. A curved hemostat was carefully placed superior into the infected space to drain the infraorbital space. CPT 36145 I & D of deep subcutaneous abscess of the cheek To gain access to the pocket of pus in the cheek another incision was made in the vestibule. This allowed further drainage to escape. There was an addition extraoral pocket of infection in the sub Q tissue of the cheek. To gain access to the extraoral pocket of pus in the cheek another incision was made in the facial skin at the base of the infection. This allowed further drainage to escape.A curved hemostat was carefully placed superior into the infected space to drain the temporal space. I palpated the face and cheek area and no further drainage was expressed. The area was irrigated with at least 100 ml of NS solution. I now placed 2 small 1/4 inch Florien drain up into the infraorbital space and sutured the drain in place with a few 3 -0 Nylon suture and another drain in the vestibular space to drain the intraoral aspect of the infection , this was secured with a 2-0 Chromic Lizandro will be followed in my office in a few days for drain removal. Lower teeth # 17,18,19,20 D7210 x 4 The full thick Muco-periosteal flap was made on the facial aspect from # 17-20 . The flap was reflected to expose the the subperiosteal space the bone adjacent to these teeth. The rongeur was used to remove bone, the 4 fractured decayed/abscess teeth were removed with a 301 elevator and dental forceps the mental nerve was intact, there was a large amount of granulation tissue on the apex and some more pus that was expressed. The sites was irrigated and sutured closed with 2-0 Chromic sutures. Upper fractured # 16 D7210 x 1 This was a grossly infected fractured wisdom tooth, these was swelling and induration from the fractured tooth and associated soft tissue. The rongeur was used to remove bone, the fractured decayed/abscess # 16 was removed with a 301 elevator and dental forceps , 2-0 Chromic suture was used for closure. I inspected the sites to insure all bleeding was controlled. I removed the throat pack and suctioned the throat. A gauze pressure dressings was placed. All instrument and sponge count was correct. The patient was allowed to awake from the anesthesia. Once full awake the anesthesia tube was removed and the patient was taken to the recovery room with all vital sign stable. The patient tolerated the surgery very well. I will follow the patient in my office, Rx and instructions will be given upon discharge. I attest to the content of the Intraoperative Record and any orders documented therein. Any exceptions are noted below.
[2025-03-16] MEDS: MoRPHine SULFATE 4 MG/ML 1 ML CARP\\VIAL IV PRN (10:22)
[2025-03-16] MEDS: VANCOMYCIN LEVEL ONE (10:27)
[2025-03-16 11:03] VITALS: RESP 16; O2SAT 96
[2025-03-16 13:18] VITALS: BP 114/72; PULSE 78
--- NOTE | 2025-03-16 13:20 | Discharge Summary ---
Date of Service March 16, 2025 Admission HPI Per Admitting Provider 24-year-old male with past medical history significant for asthma coming for [facility] with left facial swelling and pain. Patient states left side of the face started swelling since last Wednesday. It rapidly progressed. Currently not able to open his mouth. Not able to eat. Says yesterday had some fever. Says he has asthma and needed to use inhalers as he was feeling short of breath. Denies headache. No runny nose or sore throat. No cough. No chest pain. Was nauseous. No abdominal pain. Normal bowel and bladder movements. Denies any rash. Hemodynamics are okay. Past medical history. As mentioned above. Past surgical history. Denies any surgeries. Social history. Says he used to smoke weed and last time he smoked was year ago. Denies any alcohol use. Family history. Denies any family history. Admission Exam Per Admitting Provider General- Not in distress Head- Left side of face is swollen Eyes- PERRL, EOMI, anicteric ENT- not able to open mouth. Neck- supple, no JVD. Lungs- clear to auscultation no wheezing or crackles Heart- regular rhythm; no murmur, no gallop. Abdomen- normal bowel sounds, soft, nontender, no distension Extremities- no pretibial edema, no erythema seen Neuro- alert, oriented PERRL, no facial palsy; no dysarthria; moves extremities Principal Diagnosis Facial abscess Status post I&D of left facial abscess, extraction of #17, 18, 19, 20 and 16 Teeth Discharge Exam Constitutional: WD/WN, vitals as above, NAD, sitting up in bed, pleasant, conversing easily Face; Dressing in place over left cheek; swelling present. Appropriately tender. Respiratory: normal respiratory effort, lungs clear to auscultation, no wheeze, rales, rhonchi. Normal insp/exp effort, no accessory muscle use Cardiovascular: RRR, no murmur, no edema Vessels: no JVD or carotid bruit Chest: normal inspection of chest Abdomen: normal bowel sounds, soft, nontender, no hepatosplenomegaly Musculoskeletal: no cyanosis or clubbing, extremities motor strength 5/5 Skin: no rashes, warm and dry normal turgor Neurologic: PERRL, EOMI, accommodation nl, no face palsy, no dysarthria CN's II- XI intact bilaterally and moves all extremities Discharge Data Allergies Allergy/AdvReac Type Severity Reaction Status Date / Time No Known Allergies Allergy Verified 03/15/25 05:49 Consultations 03/15/25 04:37 Consult Oromaxillofacial Surgery Routine 03/15/25 04:40 ED Decision to Admit Stat Procedures Performed Operation Date: 03/15/25 14:45 Actual Procedures p Incision and Drainage of Left Facial Abscess; - Warner Mccurdy DMD s Extraction of #17, 18, 19, 20 and 60 Teeth - Warner Mccurdy DMD Ordered Studies 03/15/25 01:55 CT facial bones w con Stat Hospital Course (1) Facial swellin-year-old male with past medical history significant for asthma coming for [facility] with left facial swelling and pain. Patient states left side of the face started swelling since last Wednesday. It rapidly progressed. Facial abscess Status post I&D of left facial abscess, extraction of #17, 18, 19, 20 and 16 Teeth Patient presented to the hospital with facial swelling, fever and inability to open the mouth Underwent surgery on 03/15 Gram stain from wound growing few gram-positive cocci, rare gram-positive bacilli Evaluated in post-op period by Oral surgery, recommended 10 days more of antibiotics and discharged back to [facility] facility. Patient to follow up with Dr. mccurdy for removal of pentose drain in few days. Discussion of the instructions done with medical provider at the facility Please note the above document was generated using voice recognition software. It may contain grammatical, syntax or spelling errors. Any formal questions or concerns about the content, text or information contained within the body of this dictation should be directly addressed to the provider for clarification Total Time Total Time Spent Total Time Spent (In Minutes): 45 Total Time Includes: Examination of the Patient, Discharge Planning, Medication Reconciliation, Communication With Other Providers and Other Discharge Plan Discharge Items Patient Disposition: Home - Self-Care Reason For Visit: FACIAL/DENTAL INFECTION, SOB Discharge Diagnosis: s/p I&D facial infection left side Condition on Discharge: Fair Activity: Resume your previous activity Lifting: Gradually increase as tolerated Bathing: No limitations Exercise/Sports: Gradually increase as tolerated Weightbearing: Full weightbearing Non-emergency contact: Surgeon Call non-emergency contact if: your pain is not controlled, your pain is worsening, your temperature is above 101.5, your wound has increased redness, your wound has increased drainage and your wound pain has increased Follow-up/Referrals: Warner Mccurdy, DMD [Physician] - [facility] [Primary Care Provider] - Diet: Regular, Full liquid and Clear liquid Diet Texture: Easy to Chew Addtl Attending Provider Instructions: Take antibiotics for 10 days ADDITIONAL ACTIVITY RECOMMENDATIONS: * [place] teeth after every meal. It is very important to keep your mouth clean to prevent infection. * Starting tonight rinse with the Peridex as directed then 2 x a day * it is very important to keep well hydrated, this prevents fever and possible dry socket pain SPECIAL CARE INSTRUCTIONS: *It is not uncommon that between day 2-4 that your swelling will be at its worst this is very normal, do not be alarmed. * Keep ice on the side of your face for the next 24 to 36 hours. This will help keep the swelling down. * Return to the office for a follow up check up on: * office address--[facility] [address]. phone # [phone] Pending Studies at Discharge: Yes Studies:: I&D cultures Stand-Alone Forms: [facility], Smoking Cessation Medications and DC Order Prescriptions: New amoxicillin-pot clavulanate 875-125 mg tablet 1 tab PO BID 10 Days Qty: 20 0RF Discharge Orders: Discharge Order (Routine); Ordered 03/16/25 Ordered By: Yony John/Other Patient Handouts: Dental Abscess Admission Data Admit Date/Time: 03/15/25 05:18 Attending Provider: Yony Chi Admit Provider: Sonny Quiroz [facility] Other Providers: Warner Mccurdy; Sonny Quiroz
== END 2025-03-16 14:11 | DRG 581 ==
LOC: ED 01:40 → EDINP 05:18 → 2N 05:40

== ENCOUNTER 2025-03-17 21:05 | Inpatient (IN) ==
--- NOTE | 2025-03-17 21:16 | Emergency Department Note ---
Impression & Plan Pain, dental, Dental infection ED Provider Note CHIEF COMPLAINT: Facial pain HISTORY OF PRESENTING ILLNESS: The patient is a 24-year-old male who arrives to the emergency department for evaluation of swelling to the left side of his face. The patient had dental surgery, performed by by Dr. Mccurdy, yesterday with multiple teeth pulled, as well as drainage of a deep subcutaneous abscess of the cheek, and a drain placed. Patient states this morning he woke with severe pain in the left side of the face. He reports the drain is producing a purulent fluid. He reports a low-grade fever as well. Patient was provided oral antibiotics, and pain control, with instructions for discharge. He states the pain is not intolerable at this time, and he is concerned for worsening infection. REVIEW OF SYSTEMS: See HPI for pertinent positives and pertinent negatives. ALLERGIES: See below MEDICATIONS: See below PAST MEDICAL HISTORY: See below PHYSICAL EXAM: VITALS: Vitals are noted on the nurse's note and reviewed by myself. Tachycardia, with otherwise stable vital signs.. GENERAL: 24-year-old male, in no acute distress, nondiaphoretic, well-developed well-nourished. SKIN: Drain noted to the left cheek, with facial edema. HEAD: Normocephalic. MOUTH: Mucous membranes moist. Trismus noted. Edema with erythema and yellow discoloration noted to the left interior cheek. NECK: Supple without nuchal rigidity. Left cervical lymphadenopathy. HEART: Regular rate and rhythm without murmurs gallops or rubs. LUNGS: Clear to auscultation bilaterally without wheezes, rales or rhonchi. No retractions or accessory muscle use. NEURO: Patient was alert and oriented to person place and time. No focal neurological deficits. DIFFERENTIAL DIAGNOSIS: Dental caries, dental abscess, Ludwigs angina, Vincent angina, dental fracture, facial cellulitis, parotitis, osteomyelitis, sinus infection, peritonsillar abscess. ED COURSE AND MEDICAL DECISION MAKING: MEDICATIONS GIVEN: 1 L NSS bolus, 3 g Unasyn, 4 mg morphine INTERPRETATION OF LABS: I interpreted the labs with full lab results as below in the lab section of this note. Pertinent lab results discussed in the MDM section below. INTERPRETATION OF IMAGING: Imaging studies were interpreted by myself and read by radiology as per the imaging section of this note. CONSULTATIONS: Dr. Mccurdy, [facility] MDM SUMMARY: The patient is a pleasant, 24-year-old male who arrives to the emergency department for evaluation of the above-stated complaint. Saline lock was established, sepsis workup was obtained. CBC shows slight improvement in leukocytosis from the day prior, down from 25.14 to 21.82. CMP is unremarkable. Lactate negative. Blood cultures pending. CT imaging with IV contrast was obtained, which per radiologist's interpretation shows inflammatory changes with drain in place and small fluid collections. Patient was provided IV fluids, IV antibiotics, and IV pain control. I spoke with Dr. Mccurdy from [facility], who stated if physical examination is consistent with need for IV antibiotics the patient may be admitted, and he will consult in the morning. [facility] Quiroz agreed to evaluate and accept the patient for admission. Please refer to his documentation for further patient workup and care. DIAGNOSIS: Dental pain, infection The chart was completed utilizing [employer] Speech voice recognition software. Grammatical errors, random word insertions, pronoun errors, and incomplete sentences are an occasional consequence of this system due to software limitations, ambient noise, and hardware issues. Any formal questions or concerns about the content, text, or information contained within the body of this dictation should be directly addressed to the provider for clarification. Past Med/Surg History Problem List Dental infection (Acute) Pain, dental (Acute) Inflammation of palate Carious teeth Facial swelling Dental abscess (Acute) Surgical History H/O tooth extraction (03/16/25) Extraction of #17, 18, 19, 20 and 60 Teeth - Warner Mccurdy DMD History of incision and drainage (03/16/25) Incision and Drainage of Left Facial Abscess; - Warner Mccurdy DMD Social History Smoking Status: Former smoker Tobacco Type: Cigarettes Second Hand Exposure: No; Do You Dip or Chew Tobacco: No; Tobacco Cessation Education Requested by Patient: No Hx Alcohol Use: No Hx Substance Use: No Preferred Language: Belizean Communication Ability: Effective Comber Fixer Required: No Beliefs That Will Affect Care: None Current Living Situation: Other Current Living Situation Comment: [facility] Other Information That Helps Us Care for You: No Feels Safe at Home: Yes Safety Concerns: Feels Safe At This Time Assistive Devices: None Allergies Allergies Allergy/AdvReac Type Severity Reaction Status Date / Time No Known Allergies Allergy Verified 03/15/25 05:49 Home Meds Previous Rx's Medication Instructions Recorded amoxicillin 875 mg-potassium 1 tab PO BID 10 days #20 tabs 03/16/25 clavulanate 125 mg tablet Results & Data (ED) Vital Signs Vital Signs - 24 hr 03/17/25 21:07 03/17/25 21:41 03/17/25 21:46 Temperature 37.5 C Temperature Source Oral Pulse Rate 97 H 83 Pulse Rate [Apical] 90 Pulse Rhythm Regular Pulse Rhythm [Apical] Pulse Strength Normal Pulse Strength [Apical] Respiratory Rate 18 15 Respiratory Effort / Characteristics Non-Labored Spontaneous Non-Labored Spontaneous Respiratory Depth Normal Normal Respiratory Pattern Regular Regular Blood Pressure 107/64 Blood Pressure [Left Arm] 117/75 Blood Pressure Mean 78 Blood Pressure Mean [Left Arm] 89 Blood Pressure Position Lying Blood Pressure Position [Left Arm] Pulse Oximetry 96 97 Oxygen Delivery Method Room Air Room Air Sepsis Recent Fever Within 48 Hours Yes Sepsis New/Unexplained Change in Mental Status N/A Sepsis Action Taken by Nursing No Action Required 03/17/25 22:00 03/17/25 23:00 03/18/25 01:00 Temperature Temperature Source Pulse Rate 79 Pulse Rate [Apical] 63 76 Pulse Rhythm Pulse Rhythm [Apical] Regular Regular Pulse Strength Pulse Strength [Apical] Normal Normal Respiratory Rate 20 20 19 Respiratory Effort / Characteristics Non-Labored Non-Labored Respiratory Depth Normal Normal Respiratory Pattern Regular Regular Blood Pressure 140/74 Blood Pressure [Left Arm] 115/77 107/55 L Blood Pressure Mean 96 Blood Pressure Mean [Left Arm] 89 72 Blood Pressure Position Blood Pressure Position [Left Arm] Lying Pulse Oximetry 98 99 96 Oxygen Delivery Method Room Air Room Air Sepsis Recent Fever Within 48 Hours Sepsis New/Unexplained Change in Mental Status Sepsis Action Taken by Half-Way Medications Current Medication List: was personally reviewed by me Laboratory Data Attestation: I reviewed the patient's lab results. 03/19/25 06:03 03/19/25 06:03 Lab Results 03/17/25 Range/Units 21:26 WBC 21.82 H (4.8-10.8) K/ul RBC 4.97 (4.70-6.10) M/uL Hgb 13.7 L (14.0-18.0) g/dl Hct 42.6 (42.0-52.0) % MCV 85.7 (80.0-100.0) fL MCH 27.6 (25.0-34.0) pg MCHC 32.2 (32.0-36.0) g/dL RDW Std Deviation 41.2 (36.4-46.3) fL RDW Coeff of Rashaad 13.2 (11.5-14.5) % Plt Count 267 (130-400) K/uL MPV 10.7 (9.4-12.4) fL Immature Gran % (Auto) 0.6 % Neut % (Auto) 81.8 % Lymph % (Auto) 10.9 % [place] % (Auto) 6.4 % Eos % (Auto) 0.1 % Baso % (Auto) 0.2 % Neut # (Auto) 17.84 H (1.40-6.50) K/uL Lymph # (Auto) 2.37 (1.20-3.40) K/uL [place] # (Auto) 1.40 H (0.11-0.59) K/uL Eos # (Auto) 0.03 (0.00-0.50) K/uL Baso # (Auto) 0.05 (0.00-0.20) K/uL Immature Gran # (Auto) 0.13 (0.01-0.20) K/uL Sodium 138 (136-145) mmol/L Potassium 3.4 L (3.5-5.1) mmol/L Chloride 102 (98-107) mmol/L Carbon Dioxide 27 (21-32) mmol/L Anion Gap 9 (3-11) BUN 17 (6-23) mg/dl Creatinine 0.92 (0.6-1.4) mg/dl Est Cr Clr Drug Dosing 122.8 ml/min eGFR 119.13 BUN/Creatinine Ratio 18.5 (10-20) Glucose 102 H (70-99(Fasting)) mg/dl Lactate 1.1 (0.4-2.0) mmol/L Calcium 9.0 (8.6-10.3) mg/dl Total Bilirubin 0.5 (0.2-1.0) mg/dl AST 22 (13-39) U/L ALT 17 (7-52) U/L Alkaline Phosphatase 120 H (34-104) U/L Total Protein 7.9 (6.0-8.3) gm/dl Albumin 3.7 (3.4-5.0) gm/dl Globulin 4.2 H (2.5-4.0) gm/dl Albumin/Globulin Ratio 0.9 (0.9-2) Administered Medications Hydromorphone HCl (Hydromorphone Inj 0.5 Mg/0.5 Ml Syr) 0.5 mg IV Q6H PRN PRN Reason: Severe Pain (Scale 7, 8, 9,10) Stop: 04/01/25 02:46 Last Admin: 03/19/25 14:52 Dose: 0.5 mg Documented By: [email or web address] Admin: 03/19/25 08:34 Dose: 0.5 mg Documented By: [email or web address] Admin: 03/19/25 01:59 Dose: 0.5 mg Documented By: [id number] Admin: 03/18/25 20:03 Dose: 0.5 mg Documented By: [id number] Admin: 03/18/25 12:14 Dose: 0.5 mg Documented By: Admin: 03/18/25 03:38 Dose: 0.5 mg Documented By: [id number] Acetaminophen (Ofirmev) 1,000 mg in 100 mls @ 400 mls/hr IV Q8H PRN PRN Reason: Pain or Fever Stop: 03/21/25 02:46 Last Infusion: 03/19/25 05:38 Dose: Infused Documented By: [id number] Admin: 03/19/25 05:23 Dose: 400 mls/hr Documented By: [id number] Infusion: 03/18/25 17:09 Dose: Infused Documented By: Admin: 03/18/25 16:54 Dose: 400 mls/hr Documented By: Infusion: 03/18/25 07:30 Dose: Infused Documented By: Admin: 03/18/25 07:09 Dose: 400 mls/hr Documented By: [place] Cefazolin Sodium (Ancef 2000mg) 2,000 mg in 15 mls @ 3.75 mls/min IV Q8H LEONIDAS Stop: 03/28/25 09:29 Last Admin: 03/19/25 08:45 Dose: 3.75 mls/min Documented By: [email or web address] Admin: 03/19/25 01:04 Dose: 3.75 mls/min Documented By: Ac Admin: 03/18/25 17:09 Dose: 3.75 mls/min Documented By: Admin: 03/18/25 12:13 Dose: 3.75 mls/min Documented By: [email or web address] Discontinued Medications Sodium Chloride (Nss) 1,000 mls @ 999 mls/hr IV .Q1H1M ONE Stop: 03/17/25 22:19 Last Infusion: 03/17/25 23:00 Dose: Infused Documented By: Admin: 03/17/25 21:40 Dose: 999 mls/hr Documented By: nilson Ampicillin Sodium/Sulbactam Sodium (Unasyn) 3,000 mg in 100 mls @ 200 mls/hr IV NOW STA Stop: 03/17/25 21:48 Last Infusion: 03/17/25 22:28 Dose: Infused Documented By: nilson Admin: 03/17/25 21:40 Dose: 200 mls/hr Documented By: nilson Potassium Chloride (K Jose Guadalupe / Wtr) 10 meq in 100 mls @ 100 mls/hr IV Q1H LEONIDAS Stop: 03/18/25 03:59 Last Infusion: 03/18/25 05:38 Dose: Infused Documented By: Admin: 03/18/25 04:35 Dose: 100 mls/hr Documented By: Infusion: 03/18/25 03:59 Dose: Infused Documented By: Ac Admin: 03/18/25 02:57 Dose: 100 mls/hr Documented By: Ac Infusion: 03/18/25 02:39 Dose: Infused Documented By: Ac Admin: 03/18/25 00:56 Dose: 100 mls/hr Documented By: richie Dextrose/Sodium Chloride (D5w And 1/2nss) 1,000 mls @ 125 mls/hr IV .Q8H LEONIDAS Stop: 03/21/25 02:46 Last Infusion: 03/18/25 16:47 Dose: Infused Documented By: Admin: 03/18/25 12:13 Dose: 125 mls/hr Documented By: Infusion: 03/18/25 12:06 Dose: Infused Documented By: Admin: 03/18/25 03:23 Dose: 125 mls/hr Documented By: [id number] Ampicillin Sodium/Sulbactam Sodium (Unasyn) 3,000 mg in 100 mls @ 200 mls/hr IV Q6H LEONIDAS Stop: 03/25/25 03:14 Last Infusion: 03/18/25 04:31 Dose: Infused Documented By: [id number] Admin: 03/18/25 04:00 Dose: 200 mls/hr Documented By: [id number] Ioversol (Optiray 320 100ml) 90 ml IV ONCE ONE Stop: 03/17/25 22:23 Last Admin: 03/17/25 22:22 Dose: 90 ml Documented By: HALI Ioversol (Optiray 320 100ml) 94 ml IV ONCE ONE Stop: 03/19/25 13:16 Last Admin: 03/19/25 13:15 Dose: 94 ml Documented By: J Ketorolac Tromethamine (Ketorolac Tromethamine 15 Mg/Ml Vial) 15 mg IV NOW ONE Stop: 03/18/25 00:08 Last Admin: 03/18/25 00:19 Dose: 15 mg Documented By: richie Ketorolac Tromethamine (Ketorolac Tromethamine 15 Mg/Ml Vial) 15 mg IV NOW ONE Stop: 03/19/25 00:18 Last Admin: 03/19/25 00:31 Dose: 15 mg Documented By: [id number] Morphine Sulfate (Morphine Sulfate 4 Mg/Ml 1 Ml Carp\Vial) 4 mg IV NOW STA Stop: 03/17/25 21:20 Last Admin: 03/17/25 21:39 Dose: 4 mg Documented By: nilson Morphine Sulfate (Morphine Sulfate 4 Mg/Ml 1 Ml Carp\Vial) 4 mg IV NOW STA Stop: 03/18/25 00:08 Last Admin: 03/18/25 00:19 Dose: 4 mg Documented By: richie Imaging Data Attestation: I personally reviewed and interpreted this imaging study as follows: Radiologist's Impression: Soft Tissue Neck CT 03/17/25 21:19 Exam(s): CT NECK SOFT TISSUE With Contrast IV Amt: 90 ml optiray 320 EXAM: CT Neck With Intravenous Contrast CLINICAL HISTORY: facial swelling. TECHNIQUE: Axial computed tomography images of the neck with intravenous contrast. CTDI is 17.93 mGy and DLP is 431.61 mGy-cm. Automated exposure control was utilized for the study. A dose lowering technique was utilized adhering to the principles of ALARA. CONTRAST: Patient received 90 ml optiray 320 of IV contrast COMPARISON: No relevant prior studies available. FINDINGS: Oropharynx: The tonsils are normal in caliber and symmetric. No peritonsillar abscess. Hypopharynx: Unremarkable. Larynx: The epiglottis is maintained. Trachea: Unremarkable. Retropharyngeal space: There is minimal tracking edema in the prevertebral soft tissues at the level of C2 through C4 level. No rim enhancement. Submandibular/parotid glands: There is edema surrounding the left submandibular gland. Glands are otherwise normal in size. Thyroid: Unremarkable. No enlarged or calcified nodules. Bones/joints: Asymmetric enlargement with infiltrating, which demonstrates incomplete marginal enhancement along the left medial pterygoid deep to the angle of the left mandible with the largest component of crescentic, partially encapsulating fluid noted medially measuring 7 mm in diameter. The fluid extends over a length of approximately 4.8 cm from the level of the inferior margin of the mandible towards the pterygoids cranially. Soft tissues: There is a presumed surgical sponge in the lateral periorbital region extending to the deep margin of the left masseter muscle. There is also a superficial surgical drain noted anterior to the masseter muscle at the left lateral periorbital region. Superficial fat stranding noted throughout the left perioral region, the art history professor space and tracking along the left platysma muscle. No superficial loculated fluid collection identified. Vasculature: No acute findings. Lymph nodes: Presumably reactive left level 1 submandibular lymph nodes measuring up to 8 mm in diameter. Lung apices: Unremarkable as visualized. IMPRESSION: 1. Asymmetric enlargement with infiltrating, which demonstrates incomplete marginal enhancement along the left medial pterygoid deep to the angle of the left mandible with the largest component of crescentic, partially encapsulating fluid noted medially measuring 7 mm in diameter. The fluid extends over a length of approximately 4.8 cm from the level of the inferior margin of the mandible towards the pterygoids cranially. 2. There is a presumed surgical sponge in the lateral periorbital region extending to the deep margin of the left masseter muscle. There is also a superficial surgical drain noted anterior to the masseter muscle at the left lateral periorbital region. Superficial fat stranding noted throughout the left perioral region, the art history professor space and tracking along the left platysma muscle. No superficial loculated fluid collection identified. 3. Submandibular parotid glands. There is edema surrounding the left submandibular gland. Left submandibular sialoadenitis is a differential consideration. However, this may also be extension of tracking fluid from the left medial pterygoid. 4. There is minimal tracking edema in the prevertebral soft tissues at the level of C2 through C4 level. No rim enhancement. Electronically signed by: Vinay Montero MD 03/17/25 23:32 PM Discharge Plan Visit Data Chief Complaint: Skin Problem Stated Complaint: ABSCESS SWOLLEN, NOT DRAINING, ON LT CHEEK ED Provider: Seng Last ED Midlevel Provider: Munira Tyson Discharge Problem: Pain, dental, Dental infection Patient Disposition: Admitted As Inpatient Condition: Fair Discharge Instructions Interventions: ED Discharge Assessment Last Done: 03/18/25 02:20
[2025-03-17] MEDS: MoRPHine SULFATE 4 MG/ML 1 ML CARP\\VIAL IV STA (21:39)
[2025-03-17] MEDS: SODIUM CHLORIDE 0.9% 1,000 ML IV ONE (21:40)
[2025-03-17] MEDS: AMPICILLIN/SULBACTAM SOD 3,000 MG/100 ML BAG IV STA (21:40)
[2025-03-17 22:08] LABS: Alanine Aminotransferase 17.0 U/L (7-52); Albumin Globulin Ratio 0.9 (0.9-2); Albumin Level 3.7 gm/dl (3.4-5.0); Alkaline Phosphatase 120.0 U/L (34-104); Anion Gap 9.0 (3-11); Bilirubin,Total 0.5 mg/dl (0.2-1.0); Blood Urea Nitrogen 17.0 mg/dl (6-23); Calcium 9.0 mg/dl (8.6-10.3); Carbon Dioxide 27.0 mmol/L (21-32); Chloride 102.0 mmol/L (98-107); Creatinine Clr Calc Pharmacy 122.8 ml/min; Globulin 4.2 gm/dl (2.5-4.0); Glucose 102.0 mg/dl (70-99(Fasting)); Potassium 3.4 mmol/L (3.5-5.1); Sodium 138.0 mmol/L (136-145); Total Protein 7.9 gm/dl (6.0-8.3)
[2025-03-17 22:13] LABS: Hematocrit (blood only) 42.6 % (42.0-52.0); Hemoglobin 13.7 g/dl (14.0-18.0); Immature Granulocytes # (auto) 0.13 K/uL (0.01-0.20); Immature Granulocytes % (auto) 0.6 %; Mean Corpuscular Hemoglobin 27.6 pg (25.0-34.0); Mean Corpuscular Volume 85.7 fL (80.0-100.0); Platelet Count 267 K/uL (130-400); RDW Standard Deviation 41.2 fL (36.4-46.3); Red Blood Count 4.97 M/uL (4.70-6.10); White Blood Count 21.82 K/ul (4.8-10.8)
[2025-03-17] MEDS: OPTIRAY 320 100ml IV ONE (22:22)
--- NOTE | 2025-03-17 23:33 | CT Scan Report ---
Exam(s): CT NECK SOFT TISSUE With Contrast IV Amt: 90 ml optiray 320 EXAM: CT Neck With Intravenous Contrast CLINICAL HISTORY: facial swelling. TECHNIQUE: Axial computed tomography images of the neck with intravenous contrast. CTDI is 17.93 mGy and DLP is 431.61 mGy-cm. Automated exposure control was utilized for the study. A dose lowering technique was utilized adhering to the principles of ALARA. CONTRAST: Patient received 90 ml optiray 320 of IV contrast COMPARISON: No relevant prior studies available. FINDINGS: Oropharynx: The tonsils are normal in caliber and symmetric. No peritonsillar abscess. Hypopharynx: Unremarkable. Larynx: The epiglottis is maintained. Trachea: Unremarkable. Retropharyngeal space: There is minimal tracking edema in the prevertebral soft tissues at the level of C2 through C4 level. No rim enhancement. Submandibular/parotid glands: There is edema surrounding the left submandibular gland. Glands are otherwise normal in size. Thyroid: Unremarkable. No enlarged or calcified nodules. Bones/joints: Asymmetric enlargement with infiltrating, which demonstrates incomplete marginal enhancement along the left medial pterygoid deep to the angle of the left mandible with the largest component of crescentic, partially encapsulating fluid noted medially measuring 7 mm in diameter. The fluid extends over a length of approximately 4.8 cm from the level of the inferior margin of the mandible towards the pterygoids cranially. Soft tissues: There is a presumed surgical sponge in the lateral periorbital region extending to the deep margin of the left masseter muscle. There is also a superficial surgical drain noted anterior to the masseter muscle at the left lateral periorbital region. Superficial fat stranding noted throughout the left perioral region, the management supervisor space and tracking along the left platysma muscle. No superficial loculated fluid collection identified. Vasculature: No acute findings. Lymph nodes: Presumably reactive left level 1 submandibular lymph nodes measuring up to 8 mm in diameter. Lung apices: Unremarkable as visualized. IMPRESSION: 1. Asymmetric enlargement with infiltrating, which demonstrates incomplete marginal enhancement along the left medial pterygoid deep to the angle of the left mandible with the largest component of crescentic, partially encapsulating fluid noted medially measuring 7 mm in diameter. The fluid extends over a length of approximately 4.8 cm from the level of the inferior margin of the mandible towards the pterygoids cranially. 2. There is a presumed surgical sponge in the lateral periorbital region extending to the deep margin of the left masseter muscle. There is also a superficial surgical drain noted anterior to the masseter muscle at the left lateral periorbital region. Superficial fat stranding noted throughout the left perioral region, the management supervisor space and tracking along the left platysma muscle. No superficial loculated fluid collection identified. 3. Submandibular parotid glands. There is edema surrounding the left submandibular gland. Left submandibular sialoadenitis is a differential consideration. However, this may also be extension of tracking fluid from the left medial pterygoid. 4. There is minimal tracking edema in the prevertebral soft tissues at the level of C2 through C4 level. No rim enhancement. Electronically signed by: Vinay Montero MD 03/17/25 23:32 PM
[2025-03-18] MEDS: MoRPHine SULFATE 4 MG/ML 1 ML CARP\\VIAL IV STA (00:19)
[2025-03-18] MEDS: KETOROLAC TROMETHAMINE 15 MG/ML VIAL IV ONE (00:19)
[2025-03-18] MEDS: POTASSIUM CHLORIDE / WTR 10 MEQ/100 ML PLCT IV SCH (00:56)
--- NOTE | 2025-03-18 01:34 | History & Physical Report ---
Date of Service March 18, 2025 Assessment & Plan (1) Facial swelling: Plan: 4-year-old male who is currently in [facility] with past medical history significant for asthma ,recently had left facial abscess I&D and tooth extraction comes with significant pain at left facial surgical site. Patient says he could not eat anything today because he could not open the mouth. Having significant pain. Denies any fevers. Denies shortness of breath. Denies cough. No headache or runny nose. No chest pain or shortness of breath. Somewhat nauseous and attributes it to not eating. Has some abdominal discomfort. Normal bowel and bladder movements. Hemodynamics okay. Left facial swelling and pain Recently had a I&D of left facial abscess and extraction of 17// and 16th teeth CT scan done today shows extension of fluid N.p.o., IV fluids, pain control, IV Unasyn Consult oral surgery in a.m. History of asthma Albuterol as needed DVT prophylaxis SCDs Disposition Medical floor Full code. History of Present Illness Chief Complaint: Facial infection Primary Care Provider: [facility] 24-year-old male who is currently in [facility] with past medical history significant for asthma ,recently had left facial abscess I&D and tooth extraction comes with significant pain at left facial surgical site. Patient says he could not eat anything today because he could not open the mouth. Having significant pain. Denies any fevers. Denies shortness of breath. Denies cough. No headache or runny nose. No chest pain or shortness of breath. Somewhat nauseous and attributes it to not eating. Has some abdominal discomfort. Normal bowel and bladder movements. Hemodynamics okay. Past medical history. As mentioned above. Past surgical history. Denies any surgeries. Social history. History of smoking weed and last time he smoked was year ago. Denies any alcohol use. Family history. Denies any family history. Allergies Allergy/AdvReac Type Severity Reaction Status Date / Time No Known Allergies Allergy Verified 03/15/25 05:49 Home Medications Medication Instructions Recorded Confirmed Type amoxicillin 875 mg-potassium 1 tab PO BID 10 days #20 tabs 03/16/25 Rx clavulanate 125 mg tablet Past Med/Surg History Problem List Dental infection (Acute) Pain, dental (Acute) Inflammation of palate Carious teeth Facial swelling Dental abscess (Acute) Surgical History H/O tooth extraction (03/16/25) Extraction of #17, 18, 19, 20 and 60 Teeth - Warner Mccurdy DMD History of incision and drainage (03/16/25) Incision and Drainage of Left Facial Abscess; - Warner Mccurdy DMD Social History Smoking Status: Former smoker Tobacco Type: Cigarettes Second Hand Exposure: No; Do You Dip or Chew Tobacco: No; Tobacco Cessation Education Requested by Patient: No Hx Alcohol Use: No Hx Substance Use: No Preferred Language: Welsh Communication Ability: Effective Electrical Accessories I Assembler Required: No Beliefs That Will Affect Care: None Current Living Situation: Other Current Living Situation Comment: [facility] Other Information That Helps Us Care for You: No Feels Safe at Home: Yes Safety Concerns: Feels Safe At This Time Assistive Devices: None Review of Systems Review of Systems: All systems reviewed & are unremarkable except as noted in HPI & below Physical Exam Physical Exam: General-Not in distress Head- Left face is swollen, dressing intact Eyes- PERRL ENT- Not able to open the mouth Neck- supple, no JVD. Lungs- clear to auscultation no wheezing or crackles Heart- regular rhythm; no murmur, no gallop. Abdomen- normal bowel sounds, soft, nontender, no distension Extremities- no pretibial edema, no erythema seen Neuro- alert, oriented PERRL, no facial palsy; no dysarthria; moves extremities Results & Data Results & Data Vital Signs (Past 12 Hours) Vital Signs Temp Pulse Pulse Resp BP BP Pulse Ox 03/18/25 01:00 76 19 107/55 L 96 03/17/25 23:00 63 20 115/77 99 03/17/25 22:00 79 20 140/74 98 03/17/25 21:46 83 03/17/25 21:41 90 15 117/75 97 03/17/25 21:07 37.5 C 97 H 18 107/64 96 O2 Del Method 03/18/25 01:00 Room Air 03/17/25 23:00 Room Air 03/17/25 22:00 11/08/25 21:46 03/17/25 21:41 Room Air 03/17/25 21:07 Room Air Diagnostic Findings Laboratory Results WBC 21.82 K/ul (4.8-10.8) H 03/17/25 21:26 RBC 4.97 M/uL (4.70-6.10) 03/17/25 21:26 Hgb 13.7 g/dl (14.0-18.0) L 03/17/25 21: Hct 42.6 % (42.0-52.0) 03/17/25 21: MCV 85.7 fL (80.0-100.0) 03/17/25 21: MCH 27.6 pg (25.0-34.0) 03/17/25 21: MCHC 32.2 g/dL (32.0-36.0) 03/17/25 21: RDW Std Deviation 41.2 fL (36.4-46.3) 03/17/25 21: RDW Coeff of Rashaad 13.2 % (11.5-14.5) 03/17/25 21: Plt Count 267 K/uL (130-400) 03/17/25 21: MPV 10.7 fL (9.4-12.4) 03/17/25 21: Immature Gran % (Auto) 0.6 % 03/17/25 21: Neut % (Auto) 81.8 % 03/17/25 21: Lymph % (Auto) 10.9 % 03/17/25 21:26 Butts % (Auto) 6.4 % 03/17/25 21:26 Eos % (Auto) 0.1 % 03/17/25 21: Baso % (Auto) 0.2 % 03/17/25 21: Neut # (Auto) 17.84 K/uL (1.40-6.50) H 03/17/25 21: Lymph # (Auto) 2.37 K/uL (1.20-3.40) 03/17/25 21:26 Butts # (Auto) 1.40 K/uL (0.11-0.59) H 03/17/25 21:26 Eos # (Auto) 0.03 K/uL (0.00-0.50) 03/17/25 21:26 Baso # (Auto) 0.05 K/uL (0.00-0.20) 03/17/25 21:26 Immature Gran # (Auto) 0.13 K/uL (0.01-0.20) 03/17/25 21:26 Sodium 138 mmol/L (136-145) 03/17/25 21:26 Potassium 3.4 mmol/L (3.5-5.1) L 03/17/25 21:26 Chloride 102 mmol/L (98-107) 03/17/25 21:26 Carbon Dioxide 27 mmol/L (21-32) 03/17/25 21: Anion Gap 9 (3-11) 03/17/25 21: BUN 17 mg/dl (6-23) 03/17/25 21: Creatinine 0.92 mg/dl (0.6-1.4) 03/17/25 21: Est Cr Clr Drug Dosing 122.8 ml/min 03/17/25 21: eGFR 119.13 03/17/25 21: BUN/Creatinine Ratio 18.5 (10-20) 03/17/25 21: Glucose 102 mg/dl (70-99(Fasting)) H 03/17/25 21: Lactate 1.1 mmol/L (0.4-2.0) 03/17/25 21: Calcium 9.0 mg/dl (8.6-10.3) 03/17/25 21: Total Bilirubin 0.5 mg/dl (0.2-1.0) 03/17/25 21: AST 22 U/L (13-39) 03/17/25 21:26 ALT 17 U/L (7-52) 03/17/25 21:26 Alkaline Phosphatase 120 U/L (34-104) H 03/17/25 21: Total Protein 7.9 gm/dl (6.0-8.3) 03/17/25 21: Albumin 3.7 gm/dl (3.4-5.0) 03/17/25 21: Globulin 4.2 gm/dl (2.5-4.0) H 03/17/25 21: Albumin/Globulin Ratio 0.9 (0.9-2) 03/17/25 21:26 Impressions Soft Tissue Neck CT 03/17/25 21:19 Exam(s): CT NECK SOFT TISSUE With Contrast IV Amt: 90 ml optiray 320 EXAM: CT Neck With Intravenous Contrast CLINICAL HISTORY: facial swelling. TECHNIQUE: Axial computed tomography images of the neck with intravenous contrast. CTDI is 17.93 mGy and DLP is 431.61 mGy-cm. Automated exposure control was utilized for the study. A dose lowering technique was utilized adhering to the principles of ALARA. CONTRAST: Patient received 90 ml optiray 320 of IV contrast COMPARISON: No relevant prior studies available. FINDINGS: Oropharynx: The tonsils are normal in caliber and symmetric. No peritonsillar abscess. Hypopharynx: Unremarkable. Larynx: The epiglottis is maintained. Trachea: Unremarkable. Retropharyngeal space: There is minimal tracking edema in the prevertebral soft tissues at the level of C2 through C4 level. No rim enhancement. Submandibular/parotid glands: There is edema surrounding the left submandibular gland. Glands are otherwise normal in size. Thyroid: Unremarkable. No enlarged or calcified nodules. Bones/joints: Asymmetric enlargement with infiltrating, which demonstrates incomplete marginal enhancement along the left medial pterygoid deep to the angle of the left mandible with the largest component of crescentic, partially encapsulating fluid noted medially measuring 7 mm in diameter. The fluid extends over a length of approximately 4.8 cm from the level of the inferior margin of the mandible towards the pterygoids cranially. Soft tissues: There is a presumed surgical sponge in the lateral periorbital region extending to the deep margin of the left masseter muscle. There is also a superficial surgical drain noted anterior to the masseter muscle at the left lateral periorbital region. Superficial fat stranding noted throughout the left perioral region, the video game engineer space and tracking along the left platysma muscle. No superficial loculated fluid collection identified. Vasculature: No acute findings. Lymph nodes: Presumably reactive left level 1 submandibular lymph nodes measuring up to 8 mm in diameter. Lung apices: Unremarkable as visualized. IMPRESSION: 1. Asymmetric enlargement with infiltrating, which demonstrates incomplete marginal enhancement along the left medial pterygoid deep to the angle of the left mandible with the largest component of crescentic, partially encapsulating fluid noted medially measuring 7 mm in diameter. The fluid extends over a length of approximately 4.8 cm from the level of the inferior margin of the mandible towards the pterygoids cranially. 2. There is a presumed surgical sponge in the lateral periorbital region extending to the deep margin of the left masseter muscle. There is also a superficial surgical drain noted anterior to the masseter muscle at the left lateral periorbital region. Superficial fat stranding noted throughout the left perioral region, the video game engineer space and tracking along the left platysma muscle. No superficial loculated fluid collection identified. 3. Submandibular parotid glands. There is edema surrounding the left submandibular gland. Left submandibular sialoadenitis is a differential consideration. However, this may also be extension of tracking fluid from the left medial pterygoid. 4. There is minimal tracking edema in the prevertebral soft tissues at the level of C2 through C4 level. No rim enhancement. Electronically signed by: Vinay Montero MD 03/17/25 23:32 PM Code Status & VTE Plan VTE Prophylaxis Plan VTE Prophylaxis will be ordered: Yes
[2025-03-18] MEDS ORDERED: ONDANSETRON INJ 2 MG/ML 2 ML VIAL IV PRN (02:47)
[2025-03-18] MEDS ORDERED: HYDROmorphone INJ 0.5 MG/0.5 ML SYR IV PRN (02:47)
[2025-03-18] MEDS: D5W AND 1/2NSS 1,000 ML IV SCH (03:23)
[2025-03-18] MEDS: HYDROmorphone INJ 0.5 MG/0.5 ML SYR IV PRN (03:38)
[2025-03-18] MEDS: AMPICILLIN/SULBACTAM SOD 3,000 MG/100 ML BAG IV SCH (04:00)
[2025-03-18] MEDS: ACETAMINOPHEN 1,000 MG/100 ML VIAL IV PRN (07:09)
[2025-03-18] MEDS ORDERED: ALBUTEROL HFA 8 GM INHALER INH PRN (07:25)
[2025-03-18 07:30] LABS: Hematocrit (blood only) 36.6 % (42.0-52.0); Hemoglobin 11.8 g/dl (14.0-18.0); Immature Granulocytes # (auto) 0.14 K/uL (0.01-0.20); Immature Granulocytes % (auto) 1.0 %; Mean Corpuscular Hemoglobin 27.8 pg (25.0-34.0); Mean Corpuscular Volume 86.3 fL (80.0-100.0); Platelet Count 211 K/uL (130-400); RDW Standard Deviation 41.9 fL (36.4-46.3); Red Blood Count 4.24 M/uL (4.70-6.10); White Blood Count 14.58 K/ul (4.8-10.8)
[2025-03-18 07:45] LABS: Anion Gap 5.0 (3-11); Blood Urea Nitrogen 13.0 mg/dl (6-23); Calcium 8.5 mg/dl (8.6-10.3); Carbon Dioxide 29.0 mmol/L (21-32); Chloride 104.0 mmol/L (98-107); Creatinine Clr Calc Pharmacy 141.5 ml/min; Glucose 110.0 mg/dl (70-99(Fasting)); Magnesium 1.9 mg/dl (1.7-2.4); Potassium 3.2 mmol/L (3.5-5.1); Sodium 138.0 mmol/L (136-145)
--- NOTE | 2025-03-18 09:25 | Communication Note ---
Date of Service: March 18, 2025 Patient seen and examined at bedside. He is comfortable; not in distress. No fever or chills overnight. Leukocytosis improved On physical examination; Constitutional: WD/WN, vitals as above, NAD, sitting up in bed, pleasant, conversing easily Face; swelling on left side of the cheek; drain in place. Can open his mouth slightly. Respiratory: normal respiratory effort, lungs clear to auscultation, no wheeze, rales, rhonchi. Normal insp/exp effort, no accessory muscle use Cardiovascular: RRR, no murmur, no edema Vessels: no JVD or carotid bruit Chest: normal inspection of chest Abdomen: normal bowel sounds, soft, nontender, no hepatosplenomegaly Musculoskeletal: no cyanosis or clubbing, extremities motor strength 5/5 Skin: no rashes, warm and dry normal turgor Neurologic: PERRL, EOMI, accommodation nl, no face palsy, no dysarthria CN's II- XI intact bilaterally and moves all extremities Psychiatric: A+Ox3, euthymic affect Assessment/plan Left facial swelling and pain Recently had a I&D of left facial abscess and extraction of /20 and 16th teeth Wound culture growing MSSA Placed on cefazolin; plan to discharge on cefazolin. Appreciate oral surgery recommendation Continue pain control Continue IV fluids Full progress note to follow tomorrow Please note the above document was generated using voice recognition software. It may contain grammatical, syntax or spelling errors. Any formal questions or concerns about the content, text or information contained within the body of this dictation should be directly addressed to the provider for clarification
--- NOTE | 2025-03-18 11:50 | Oral/Maxillofacial Consult ---
Date of Consultation March 18, 2025 History of Present Illness Attending Physician: Yony Chi MD History of Present Illness Lizandro was readmitted to the hospital last night from the [facility] facility because of pain inability to open his mouth and swelling. I believe the reason for this is due to the fact that he needed better pain control and the only pain medication he was getting at the facility was Tylenol. I evaluated him this morning in room 322. He is resting comfortably. As a [id number] the swelling is much softer than it was when I initially met him last week. I took the liberty of removing the fascial drain and palpated the area and there was no further pus in the fascial drain that was going up to the infratemporal fossa and temporal area. Intraorally there did not seem to be much drainage other than pooling of saliva. I was able to palpate both intraoral and extraoral and did not find any additional pockets of pus that required additional drainage. The extraction site and incision and drainage sit e in the vestibular space and the lower left side is looking great. The tissue is starting to heal well the sutures are in place and there is minimal swelling in this particular area. Because the infection did involve the mass coke oven patcher space he is still having trismus. I do feel that this trismus is secondary to muscular inflammation. I feel that he is not a candidate for any additional drainage in the operating room at this time. Therefore he can have diet as tolerated. I would suspect that clear liquids full liquids would be his best bet. I am also taking the liberty of ordering a heat machine in the form of a K-pad's to be used [id number] with massage which I showed him how to do. I also encouraged him to start stretching his mouth to get some of the fibrosis of the muscles looser given the fact that he has had this infection for such a long time. His teeth were in terrible shape which is the underlying etiology of the current infection. My plan is to use the heat Peridex mouth rinse diet as tolerated jaw stretching I will order a suction unit so he could suck out some of the excessive saliva in his mouth I will see him tomorrow in the late morning and most likely remove the oral drainage tube. I did review the new CT scan and I must admit the radiologist to read it really missed the boat. First of all he states that there was no CT scan for comparison which is totally wrong as there was a CT scan in the chart when the patient first came in. He then goes to state that there are 2 retained sponges in the mouth which indeed are Helen drains. Since he has no comparison to the extent of the inflammation from the original CT scan in my opinion this is not an accurate reading. I will be pointing this out to our [facility] physician radiologist for an addendum and correction on this report. There is no doubt that there is these are not sponges as a sponge count was corrected at the time of surgery and this must be corrected from a medical legal reason in the radiology report. Overall I firmly believe that the patient is heading in the right direction. The soft tissue is much softer than it was drainage has ceased extraorally and is minimal intraorally. Given the extent of the infection and the surgery his swelling and discomfort is appropriate. Unfortunately I think being in the facility and not having adequate pain medication is an issue. Hopefully the heat the Peridex oral hygiene care will improve the situation so we can get this individual back to the facility for his ongoing care. Allergies Allergy/AdvReac Type Severity Reaction Status Date / Time No Known Allergies Allergy Verified 03/15/25 05:49 Home Medications Medication Instructions Recorded Confirmed Type amoxicillin 875 mg-potassium 1 tab PO BID 10 days #20 tabs 03/16/25 Rx clavulanate 125 mg tablet Patient History Surgical History H/O tooth extraction (03/16/25) Extraction of #17, 18, 19, 20 and 60 Teeth - Warner Mccurdy DMD History of incision and drainage (03/16/25) Incision and Drainage of Left Facial Abscess; - Warner Mccurdy DMD Social History Smoking Status: Former smoker Tobacco Type: Cigarettes Second Hand Exposure: No; Do You Dip or Chew Tobacco: No; Tobacco Cessation Education Requested by Patient: No Hx Alcohol Use: No Hx Substance Use: No Preferred Language: [place] Communication Ability: Effective Pediatrician Required: No Beliefs That Will Affect Care: None Current Living Situation: Other Current Living Situation Comment: [facility] facility[facility] Other Information That Helps Us Care for You: No Feels Safe at Home: Yes Safety Concerns: Feels Safe At This Time Assistive Devices: None Results & Data Vital Signs (Past 12 Hours) Vital Signs Temp Pulse Pulse Pulse Resp BP BP 03/18/25 07:12 37.3 C 75 16 111/69 03/18/25 02:37 37.2 C 72 16 119/72 03/18/25 02:20 36.6 C 75 18 107/59 L 03/18/25 01:52 73 03/18/25 01:00 76 19 107/55 L Pulse Ox O2 Del Method 03/18/25 07:12 99 Room Air 03/18/25 02:37 99 Room Air 03/18/25 02:20 98 Room Air, BiPAP 03/18/25 01:52 03/18/25 01:00 96 Room Air PG Care Time/CCT Total # of Minutes Spent Total Time Spent with Patient: Total time spent is greater than 50% in coordination of care (as documented) at patient's floor/unit and/or counseling patient: Coding Level of Care Code 84971 IN/OBS CONSULT LVL 2,35M
[2025-03-19] MEDS: KETOROLAC TROMETHAMINE 15 MG/ML VIAL IV ONE (00:31)
[2025-03-19 06:42] LABS: Hematocrit (blood only) 37.2 % (42.0-52.0); Hemoglobin 12.3 g/dl (14.0-18.0); Immature Granulocytes # (auto) 0.18 K/uL (0.01-0.20); Immature Granulocytes % (auto) 1.2 %; Mean Corpuscular Hemoglobin 27.7 pg (25.0-34.0); Mean Corpuscular Volume 83.8 fL (80.0-100.0); Platelet Count 243 K/uL (130-400); RDW Standard Deviation 39.3 fL (36.4-46.3); Red Blood Count 4.44 M/uL (4.70-6.10); White Blood Count 14.95 K/ul (4.8-10.8)
[2025-03-19 06:57] LABS: Anion Gap 8.0 (3-11); Blood Urea Nitrogen 8.0 mg/dl (6-23); Calcium 8.9 mg/dl (8.6-10.3); Carbon Dioxide 28.0 mmol/L (21-32); Chloride 100.0 mmol/L (98-107); Creatinine Clr Calc Pharmacy 141.5 ml/min; Glucose 101.0 mg/dl (70-99(Fasting)); Potassium 3.2 mmol/L (3.5-5.1); Sodium 136.0 mmol/L (136-145)
--- NOTE | 2025-03-19 10:27 | Hospitalist Progress Note ---
Date of Service March 19, 2025 Assessment & Plan (1) Facial swelling: Plan: 4-year-old male who [facility] with past medical history significant for asthma ,recently had left facial abscess I&D and tooth extraction comes with significant pain at left facial surgical site. Patient says he could not eat anything today because he could not open the mouth. Having significant pain. Denies any fevers. Denies shortness of breath. Denies cough. No headache or runny nose. No chest pain or shortness of breath. Somewhat nauseous and attributes it to not eating. Has some abdominal discomfort. Normal bowel and bladder movements. Hemodynamics okay. Left facial swelling and pain Recently had a I&D of left facial abscess and extraction of / and 16th teeth Patient was previously admitted from 03/15 to 03/16; underwent I&D of the facial abscess and extraction of the teeth. He returned back to the hospital on 03/17 reporting increasing pain. Was evaluated by oral surgery on 03/18; noted to have good healing/improvement. Wound culture growing MSSA Continue on cefazolin; plan to discharge on cephalexin. Continue pain control Possible DC tomorrow a.m. if patient continues to do well History of asthma Albuterol as needed DVT prophylaxis SCDs Disposition Medical floor Full code. Admission and Anticipated Discharge Date Admission Date: March 18, 2025 Subjective Patient seen and examined at bedside. He reports that he is feeling better overall. Swelling seems to have been improving as well Review of Systems Review of Systems: All systems reviewed & are unremarkable except as noted in Subjective Physical Exam Physical Exam: Constitutional: WD/WN, vitals as above, NAD, sitting up in bed, pleasant, conversing easily Face; swelling on left side of the cheek; Improved compared to previous days. Able to open his mouth more Respiratory: normal respiratory effort, lungs clear to auscultation, no wheeze, rales, rhonchi. Normal insp/exp effort, no accessory muscle use Cardiovascular: RRR, no murmur, no edema Vessels: no JVD or carotid bruit Chest: normal inspection of chest Abdomen: normal bowel sounds, soft, nontender, no hepatosplenomegaly Musculoskeletal: no cyanosis or clubbing, extremities motor strength 5/5 Skin: no rashes, warm and dry normal turgor Neurologic: PERRL, EOMI, accommodation nl, no face palsy, no dysarthria CN's II- XI intact bilaterally and moves all extremities Psychiatric: A+Ox3, euthymic affec Results & Data Results & Data Vital Signs (Past 12 Hours) Vital Signs Temp Pulse Resp BP Pulse Ox O2 Del Method 03/19/25 08:05 36.8 C 90 14 123/78 99 Room Air
--- NOTE | 2025-03-19 12:39 | Progress Note ---
Date of Service March 19, 2025 Assessment & Plan Admission and Anticipated Discharge Date Admission Date: March 18, 2025 Subjective I made rounds on Lizandro this afternoon and noted that there was still quite a bit of purulent drainage from his mouth. His trismus has improved slightly but the swelling in his cheek is still present. It is getting a little softer. He has pain is only controlled with with the pain medication here at the hospital. He has been using suction heat and exercising his jaws but I see minimal improvement since yesterday. I feel at this time it is important to get a CT scan with contrast to see if there is any other pockets of purulent material that have not been adequately drained. Depending on the CT scan I will make a decision if I need to take him back to the OR to open up any other pockets of fluctuance. If I am not seeing more improvement in the swelling and drainage a consultation with infectious disease may be necessary. I spoke with the guards and informed them that there is no way he can go back to the facility until we get the infection under control his pain under control and his mouth opening improved. At this time a CT scan with contrast was ordered and we will await the results before proceeding with surgical intervention. Results & Data Vital Signs (Past 12 Hours) Vital Signs Temp Pulse Resp BP Pulse Ox O2 Del Method 03/19/25 08:05 36.8 C 90 14 123/78 99 Room Air PG Care Time/CCT Total # of Minutes Spent Total Time Spent with Patient: Total time spent is greater than 50% in coordination of care (as documented) at patient's floor/unit and/or counseling patient: Coding Level of Care Code 86574 SUB INP/OBS CARE 06/03MIN
[2025-03-19] MEDS: OPTIRAY 320 100ml IV ONE (13:15)
--- NOTE | 2025-03-19 13:57 | CT Scan Report ---
CT facial bones w con CLINICAL HISTORY: continued drainage of pus COMPARISON STUDY: 03/15/2025 FINDINGS: The patient was scanned in a dynamic helical fashion during intravenous administration of 9 4 cc of Optiray 320. There is persistent left cervical lymphadenopathy minimally more prominent on the prior study and lik sonia reactive. There is evidence for interval extraction of multiple left posterior mandibular teeth. There is a lef t-sided erin-mandibular drain. There are increasing inflammatory changes centered on the left hemimandible. These extend to the left peritonsillar region where there is a 4.5 cm phlegmonous mass/developing abscess. There is mass effe ct on the adjacent airway. There also phlegmonous changes within the soft tissues superficial to the surgical bed. There is also a 19 mm rim-enhancing collection centered on the left mandibular angle co nsistent with an abscess. There is mild enlargement of the left submandibular gland likely reactive. Note is made of poor dentition with multiple additional right-sided dental caries IMPRESSION: 1. Interval resection of multiple left posterior mandibular teeth 2. Interval worsening of the left-sided perimandibular inflammatory changes. 3. There is now evidence for a rim-enhancing abscess centered on the left posterior mandible. 4. 4.5 cm phlegmonous mass/developing abscess involving the left peritonsillar region with mass effec t on the adjacent airway 5. Interval placement of a left-sided perimandibular drain. There are progressive inflammatory change s within the soft tissues superficial to the left hemimandible. 6. Left-sided cervical lymphadenopathy likely reactive ACT 112: Negative or not required by law. Electronically signed by: Michael Langston M.D. 03/19/2025 1:55 PM
--- NOTE | 2025-03-19 18:43 | Progress Note ---
Date of Service March 19, 2025 Assessment & Plan Admission and Anticipated Discharge Date Admission Date: March 18, 2025 Subjective When I saw Lizandro this early afternoon I was concerned that I did not see as much improvement as I would expect. He still has a lot of drainage, still swollen,pain and trismus. Heat massage and suctioning his infection does not seem to be improving. I had the opportunity to review the CT scan. There is now evidence of a left peritonsillar and medial aspect of the left mandible. I will need to establish further drainage intraorally,I will obtain new cultures to determine if any additional bacteria are present. Depending on the amount of drainage that I evacuate tomorrow and the results of the cultures infectious disease may need to be consulted to help get broader coverage for this infection. Given this patient's current living conditions in a facility His chronic dental condition which is one of the worst I have seen it is medically necessary to take him back to the operating room to perform further drainage of the infection as discussed in the CT scan. I will keep him n.p.o. this evening for a time to do the incision and drainage most likely after I complete office hours tomorrow which would be about 12:15. Results & Data Vital Signs (Past 12 Hours) Vital Signs Temp Pulse Resp BP Pulse Ox O2 Del Method 03/19/25 15:46 36.1 C L 69 14 130/81 98 Room Air 03/19/25 08:05 36.8 C 90 14 123/78 99 Room Air PG Care Time/CCT Total # of Minutes Spent Total Time Spent with Patient: Total time spent is greater than 50% in coordination of care (as documented) at patient's floor/unit and/or counseling patient: Coding Level of Care Code None
[2025-03-20 06:41] LABS: Hematocrit (blood only) 37.6 % (42.0-52.0); Hemoglobin 12.5 g/dl (14.0-18.0); Immature Granulocytes # (auto) 0.21 K/uL (0.01-0.20); Immature Granulocytes % (auto) 1.5 %; Mean Corpuscular Hemoglobin 27.5 pg (25.0-34.0); Mean Corpuscular Volume 82.6 fL (80.0-100.0); Platelet Count 289 K/uL (130-400); RDW Standard Deviation 39.6 fL (36.4-46.3); Red Blood Count 4.55 M/uL (4.70-6.10); White Blood Count 14.06 K/ul (4.8-10.8)
[2025-03-20 06:58] LABS: Anion Gap 7.0 (3-11); Blood Urea Nitrogen 9.0 mg/dl (6-23); Calcium 9.1 mg/dl (8.6-10.3); Carbon Dioxide 32.0 mmol/L (21-32); Chloride 98.0 mmol/L (98-107); Creatinine Clr Calc Pharmacy 118.9 ml/min; Glucose 108.0 mg/dl (70-99(Fasting)); Potassium 3.2 mmol/L (3.5-5.1); Sodium 137.0 mmol/L (136-145)
--- NOTE | 2025-03-20 10:24 | Anesthesiology Consultation ---
Date of Service March 20, 2025 Assessment & Plan (1) Encounter for pre-operative examination: Chart Review Chart Review: Acceptable Risk for Surgery and Patient NOT seen in Pre Admission Testing Consults Requested none History Surgery Operation Date: 03/20/25 07:00 Proposed Procedures p Left Intraoral Incision and Drainage - Warner Mccurdy DMD Height/Weight Height: 5 ft 6 in Weight: 77.7 kg Allergies Allergy/AdvReac Type Severity Reaction Status Date / Time No Known Allergies Allergy Verified 03/15/25 05:49 Medications Home Medications Medication Instructions Recorded Confirmed Last Taken amoxicillin 875 mg-potassium 1 tab PO BID 10 days #20 tabs 03/16/25 Unknown clavulanate 125 mg tablet Active Medications Generic Name Dose Route Start Last Admin Trade Name Freq PRN Reason Stop Dose Admin Hydromorphone HCl 0.5 mg 03/18/25 02:47 03/20/25 03:11 Hydromorphone Inj 0.5 Mg/0.5 Ml Syr IV 04/01/25 02:46 0.5 mg Q6H PRN Administration Severe Pain (Scale 7, 8, 9,10) Acetaminophen 1,000 mg in 100 mls @ 400 mls/hr 03/18/25 02:47 03/20/25 08:15 Ofirmev IV 03/21/25 02:46 Infused Q8H PRN Infusion Pain or Fever Cefazolin Sodium 2,000 mg in 15 mls @ 3.75 mls/min 03/18/25 09:30 03/20/25 09:27 Ancef 2000mg IV 03/28/25 09:29 3.75 mls/min Q8H LEONIDAS Administration Past Surgical History Surgical History H/O tooth extraction (03/16/25) Extraction of #17, 18, 19, 20 and 60 Teeth - Warner Mccurdy DMD History of incision and drainage (03/16/25) Incision and Drainage of Left Facial Abscess; - Warner Mccurdy DMD Social History Smoking Status: Former smoker Do You Dip or Chew Tobacco: No Hx Alcohol Use: No Hx Substance Use: No Physical Exam Vital Signs Last Vital Signs Temp 96.8 F L 03/20/25 07:57 Pulse 78 03/20/25 07:57 Resp 16 03/20/25 07:57 BP 108/69 03/20/25 07:57 Pulse Ox 98 03/20/25 07:57 O2 Del Method Room Air 03/20/25 09:00 Testing Laboratory Results 03/20/25 06:24 03/20/25 06:24 03/17/25 21:26 Aerobic Blood Culture - Preliminary Blood No growth in Aerobic bottle after 48 hours. Anaerobic Blood Culture - Preliminary No growth in Anaerobic bottle after 48 hours. 03/17/25 21:26 Aerobic Blood Culture - Preliminary Blood No growth in Aerobic bottle after 48 hours. Anaerobic Blood Culture - Preliminary No growth in Anaerobic bottle after 48 hours.
--- NOTE | 2025-03-20 10:33 | Hospitalist Progress Note ---
Date of Service March 20, 2025 Assessment & Plan (1) Facial swelling: Plan: 24-year-old male who is currently in [facility] with past medical history significant for asthma ,recently had left facial abscess I&D and tooth extraction comes with significant pain at left facial surgical site. Left facial swelling and pain Recently had a I&D of left facial abscess and extraction of 17/18/19/20 and 16th teeth on 03/16/2025 Patient was previously admitted from 03/15 to 03/16; underwent I&D of the facial abscess and extraction of the teeth. He returned back to the hospital on 03/17 reporting increasing pain. Wound culture growing MSSA, cutibacterium acnes Repeat of the facial CT from 03/19 showing interval worsening of the left-sided perimandibular inflammatory changes, rim enhancing abscess centered on left posterior mandible, 4.5 cm phlegmonous mass/developing abscess involving the left peritonsillar region with mass effect on the adjacent airway. Plan: Evaluated by oral surgery; plan for left intraoral I&D today. Infectious disease has been consulted for comanagement as per recommendation by oral surgery Plan to continue on cefazolin for now History of asthma Albuterol as needed DVT prophylaxis SCDs Disposition Medical floor Full code. Admission and Anticipated Discharge Date Admission Date: March 18, 2025 Subjective Patient seen and examined at bedside. He is comfortable; not in distress. He continues to have pus drainage inside his mouth. Review of Systems Review of Systems: All systems reviewed & are unremarkable except as noted in Subjective Physical Exam Physical Exam: Constitutional: WD/WN, vitals as above, NAD, sitting up in bed, pleasant, conversing easily Face; Swelling present on the left side of the cheek; able to open his mouth. Pus draining from the wound inside the mouth. Respiratory: normal respiratory effort, lungs clear to auscultation, no wheeze, rales, rhonchi. Normal insp/exp effort, no accessory muscle use Cardiovascular: RRR, no murmur, no edema Vessels: no JVD or carotid bruit Abdomen: normal bowel sounds, soft, nontender, no hepatosplenomegaly Musculoskeletal: no cyanosis or clubbing, extremities motor strength 5/5 Skin: no rashes, warm and dry normal turgor Neurologic: PERRL, EOMI, accommodation nl, no face palsy, no dysarthria CN's II- XI intact bilaterally and moves all extremities Psychiatric: A+Ox3, euthymic affec Results & Data Results & Data Vital Signs (Past 12 Hours) Vital Signs Temp Pulse Resp BP Pulse Ox O2 Del Method 03/20/25 09:00 Room Air 03/20/25 07:57 36 C L 78 16 108/69 98 Room Air 03/19/25 23:22 36.7 C 73 16 121/76 99 Room Air
[2025-03-20] MEDS ORDERED: DEXAMETHASONE SOD INJ 4 MG/ML VIAL ONE (11:22)
[2025-03-20] MEDS ORDERED: ROCURONIUM BROMIDE 10 MG/ML 5 ML VIAL IV ONE (11:22)
[2025-03-20] MEDS ORDERED: GLYCOPYRROLATE 0.2 MG/ML VIAL ONE (11:22)
[2025-03-20] MEDS ORDERED: ONDANSETRON INJ 2 MG/ML 2 ML VIAL ONE (11:22)
[2025-03-20] MEDS ORDERED: LIDOCAINE 2% 2 ML VIAL/AMP(20MG/ML) INFIL ONE (11:22)
[2025-03-20] MEDS ORDERED: PROPOFOL IV EMULSION 10 MG/ML 20 ML VIAL IV ONE (11:22)
[2025-03-20] MEDS ORDERED: MIDAZOLAM HCL 1 MG/ML 2ML VIAL ONE (11:23)
[2025-03-20] MEDS ORDERED: KETAMINE HCL 10MG/ML SYR ONE (11:27)
[2025-03-20] MEDS ORDERED: SUGAMMADEX SODIUM 200 MG/2 ML VIAL IV ONE (11:27)
--- NOTE | 2025-03-20 12:45 | History & Physical Bridge Note ---
Date of Service March 20, 2025 History & Physical Bridge Note I have examined the patient, reviewed the History & Physical and in the interval since the performance of the History & Physical I have noted the following changes of clinical significance: no changes noted. Plan re I&D of the left oral/facial infection
[2025-03-20] MEDS: CHLORHEXIDINE GLUCONATE 0.12% 480 ML MT PRN (13:32)
[2025-03-20] MEDS ORDERED: SUCCINYLCHOLINE 100MG/5ML SYR IV ONE (13:48)
[2025-03-20] MEDS: BUPIVACAINE/EPINEPHRINE 0.5% 1:200,000 1.8 ML CARP ONE (14:04)
[2025-03-20] MEDS ORDERED: DEXAMETHASONE SOD INJ 4 MG/ML VIAL IV PRN (14:15)
[2025-03-20] MEDS ORDERED: ONDANSETRON INJ 2 MG/ML 2 ML VIAL IV PRN (14:15)
[2025-03-20] MEDS ORDERED: ATROPINE SULFATE 0.1 MG/ML 10ML SYR IV PRN (14:15)
--- NOTE | 2025-03-20 14:37 | Post Operative Brief Note ---
PG Immediate Post Op with CF Date of Surgery March 20, 2025 Pre & Post Diagnosis Operation Date: 03/20/25 07:00 Pre-Op Diagnosis: Facial infection, trismus Post-Op Diagnosis: Facial infection, trismus I identified the patient and participated in the time-out.: Yes Procedure Operation Date: 03/20/25 07:00 Actual Procedures p Left Intraoral Incision and Drainage(Left) - Warner Mccurdy DMD Surgeon Warner Mccurdy DMD Cyanide Pot Tender none Estimated Blood Loss 6 Findings Consistent with Post-Op Diagnosis infection of oral facial left side Lateral tonsil area left floor of the mouth Specimens Specimen Description: 1. External facial abscess culture 2. Internal facial abscess culture Drains Helen Drain (cut into 2 pieces, one piece to drain external left face and one piece to drain internal left face) Anesthesia Type General Complications none Disposition Accompanied Patient To Recovery: Yes
[2025-03-20] MEDS: HYDROmorphone INJ 2 MG/ML SYR/VIAL IV PRN (14:40)
[2025-03-20] MEDS: KETOROLAC 30 MG/ML VIAL IV PRN (14:43)
--- NOTE | 2025-03-20 15:12 | Infectious Disease Consult ---
Date of Service March 20, 2025 Telehealth Information I performed this visit using a real-time telehealth connection between my location and the patients location ([facility]). After connecting through interactive tele-video, patient was identified by name and date of and/or wristband check.Patient (or authorized healthcare patient representative) was informed that this was a telemedicine visit and it was being conducted confidentially over secure lines. My office door was closed and no one else was present in the room with me.Patient (or authorized healthcare patient representative) provided consent to proceed with the visit, expressed an understanding of privacy and security of the telemedicine visit, and gave permission to have a hospital patient representative in the room in order to assist with the visit and to conduct portions of the visit, as needed. I informed the patient (or authorized healthcare patient representative) that I reviewed their record and presented the opportunity for them to ask any questions regarding the visit today. The patient agreed to participate. Assessment & Plan (1) Facial abscess: (2) Peritonsillar abscess: (3) Status post incision and drainage: Plan Given that the facial abscess also grew Cutibacterium from intraoperative cultures on 03/15 and because of the possibility of presence of other anaerobes, I would recommend changing IV cefazolin to IV Unasyn. Duration of treatment will depend on the extent of source control of the left facial and deep neck space abscess. Continue to follow up on the cultures and adjust antibiotics as needed. History of Present Illness History of Present Illness Lizandro is a 24-year-old man, currently incarcerated, with past medical history of asthma who was admitted to [facility] on 03/18 because of persistent left facial abscess. He was admitted to the hospital on 03/15 because of left facial abscess and for which he underwent incision and drainage by maxillofacial surgery as well as extraction of multiple teeth on 03/15/2025. Intraoperative cultures grew MSSA and cutibacterium and was eventually discharged on 03/16 on Augmentin 875/125 twice daily for a total of 10 days. On 03/18, he comes back to the hospital with worsening pain at the left facial surgical site with a repeat CT scan of the face suggestive of an abscess inferior margin of the left mandible with another repeat CT scan on 03/19 which demonstrated the same rim enhancing abscess as well as a 4.5 cm developing abscess involving the left peritonsillar region with mass effect on the adjacent airway. Therefore, the maxillofacial team decided to take him for another incision and drainage today. ID team was consulted for further recommendations and to help guide antibiotic treatment. Allergies Allergy/AdvReac Type Severity Reaction Status Date / Time No Known Allergies Allergy Verified 03/15/25 05:49 Home Medications Medication Instructions Recorded Confirmed Type amoxicillin 875 mg-potassium 1 tab PO BID 10 days #20 tabs 03/16/25 Rx clavulanate 125 mg tablet Patient History Surgical History (Updated 03/20/25 @ 15:14 by Cezar Comer MD) History of incision and drainage (03/20/25) Left Intraoral Incision and Drainage(Left) - Warner Mccurdy DMD H/O tooth extraction (03/16/25) Extraction of #17, 18, 19, 20 and 60 Teeth - Warner Mccurdy DMD History of incision and drainage (03/16/25) Incision and Drainage of Left Facial Abscess; - Warner Mccurdy DMD Social History Smoking Status: Former smoker Tobacco Type: Cigarettes Second Hand Exposure: No; Do You Dip or Chew Tobacco: No; Tobacco Cessation Education Requested by Patient: No Hx Alcohol Use: No Hx Substance Use: No Preferred Language: Macedonian Communication Ability: Effective Welder Tech Required: No Beliefs That Will Affect Care: None Current Living Situation: Other Current Living Situation Comment: [facility] facility[facility] Other Information That Helps Us Care for You: No Feels Safe at Home: Yes Safety Concerns: Feels Safe At This Time Assistive Devices: None Review of Systems Could not be obtained as the patient was in OR. Physical Exam Could not be performed as the visit was conducted via TeleMed. Results & Data Vital Signs (Past 12 Hours) Vital Signs Temp Pulse Pulse Resp BP Pulse Ox O2 Del Method 03/20/25 14:55 36.5 C 55 L 14 106/72 100 Nasal Cannula 03/20/25 14:45 48 L 14 121/81 94 Nasal Cannula 03/20/25 14:35 53 L 12 122/83 93 Room Air 03/20/25 14:25 67 12 125/83 100 Room Air 03/20/25 14:18 36 C L 67 12 136/81 99 Room Air 03/20/25 11:29 36.7 C 68 20 103/71 96 Room Air 03/20/25 09:00 Room Air 03/20/25 07:57 36 C L 78 16 108/69 98 Room Air O2 Flow Rate 03/20/25 14:55 2 03/20/25 14:45 2 03/20/25 14:35 03/20/25 14:25 03/20/25 14:18 03/20/25 11:29 03/20/25 09:00 03/20/25 07:57 Laboratory Results Microbiology: 03/15: 2 sets of blood culture negative 03/15: Intraoperative deep wound culture growing MSSA and Cutibacterium acnes 03/17: 2 sets of blood culture negative to date03/20: Intraoperative cultures pending Diagnostic Findings CT of the face on 03/19: 1. Interval resection of multiple left posterior mandibular teeth 2. Interval worsening of the left-sided perimandibular inflammatory changes. 3. There is now evidence for a rim-enhancing abscess centered on the left posterior mandible. 4. 4.5 cm phlegmonous mass/developing abscess involving the left peritonsillar region with mass effect on the adjacent airway 5. Interval placement of a left-sided perimandibular drain. There are progressive inflammatory changes within the soft tissues superficial to the left hemimandible. 6. Left-sided cervical lymphadenopathy likely reactive
--- NOTE | 2025-03-20 15:15 | Anesthesiology Progress Note ---
Date of Service March 20, 2025 Anesthesia Post Procedure Vital Signs Vital Signs: Temp Pulse Pulse Resp BP Pulse Ox O2 Del Method 03/20/25 15:05 55 L 12 138/94 100 Nasal Cannula 03/20/25 14:55 36.5 C 55 L 14 106/72 100 Nasal Cannula 03/20/25 14:45 48 L 14 121/81 94 Nasal Cannula 03/20/25 14:35 53 L 12 122/83 93 Room Air 03/20/25 14:25 67 12 125/83 100 Room Air 03/20/25 14:18 36 C L 67 12 136/81 99 Room Air 03/20/25 11:29 36.7 C 68 20 103/71 96 Room Air 03/20/25 09:00 Room Air 03/20/25 07:57 36 C L 78 16 108/69 98 Room Air 03/19/25 23:22 36.7 C 73 16 121/76 99 Room Air 03/19/25 15:46 36.1 C L 69 14 130/81 98 Room Air O2 Flow Rate 03/20/25 15:05 2 03/20/25 14:55 2 03/20/25 14:45 2 03/20/25 14:35 03/20/25 14:25 03/20/25 14:18 03/20/25 11:29 03/20/25 09:00 03/20/25 07:57 03/19/25 23:22 03/19/25 15:46 Pain Intensity Left Face: Pain Intensity: 8 Transfer of Care Handoff Completed per policy Notes Mental Status: alert / awake / arousable and participated in evaluation Patient Amnestic to Procedure: Yes Nausea / Vomiting: adequately controlled Pain: adequately controlled Airway Patency, RR, SpO2: stable & adequate BP & HR: stable & adequate Hydration State: stable & adequate Anesthetic Complications: no major complications apparent and Pt Satisfied with anesthetic care
[2025-03-20] MEDS: AMPICILLIN/SULBACTAM SOD 3,000 MG/100 ML BAG IV SCH (17:21)
[2025-03-21] MEDS: KETOROLAC TROMETHAMINE 15 MG/ML VIAL IV ONE (02:11)
[2025-03-21 07:32] LABS: Hematocrit (blood only) 35.2 % (42.0-52.0); Hemoglobin 11.8 g/dL (14.0-18.0); Immature Granulocytes # (auto) 0.11 K/uL (0.01-0.20); Immature Granulocytes % (auto) 1.0 %; Mean Corpuscular Hemoglobin 28.0 pg (25.0-34.0); Mean Corpuscular Volume 83.6 fL (80.0-100.0); Platelet Count 336 K/uL (130-400); RDW Standard Deviation 39.8 fL (36.4-46.3); Red Blood Count 4.21 M/uL (4.70-6.10); White Blood Count 11.53 K/ul (4.8-10.8)
[2025-03-21 07:54] LABS: Anion Gap 6.0 (3-11); Blood Urea Nitrogen 15.0 mg/dl (6-23); Calcium 8.9 mg/dl (8.6-10.3); Carbon Dioxide 33.0 mmol/L (21-32); Chloride 100.0 mmol/L (98-107); Creatinine Clr Calc Pharmacy 127.0 ml/min; Glucose 102.0 mg/dl (70-99(Fasting)); Potassium 4.0 mmol/L (3.5-5.1); Sodium 139.0 mmol/L (136-145)
--- NOTE | 2025-03-21 14:07 | Hospitalist Progress Note ---
Date of Service March 21, 2025 Assessment & Plan (1) Facial swelling: Plan: 24-year-old male who is currently in [facility]way with past medical history significant for asthma ,recently had left facial abscess I&D and tooth extraction comes with significant pain at left facial surgical site. Left facial swelling and pain Recently had a I&D of left facial abscess and extraction of 17/18/19/20 and 16th teeth on 03/16/2025 -Patient was previously admitted from 03/15 to 03/16; underwent I&D of the facial abscess and extraction of the teeth. He returned back to the hospital on 03/17 reporting increasing pain. -Wound culture growing MSSA, cutibacterium acnes -Repeat of the facial CT from 03/19 showing interval worsening of the left-sided perimandibular inflammatory changes, rim enhancing abscess centered on left posterior mandible, 4.5 cm phlegmonous mass/developing abscess -involving the left peritonsillar region with mass effect on the adjacent airway. Plan: -POD 1 from repeat incision and drainage -f/u op cultures -ID consult, continue unasyn for now -switch around pain medications: start lyrica 25mg tid for neuropathic pain, increase oxycodone to 10mg q4hr prn with IV dilaudid 1mg q4hr ONLY for breakthrough pain History of asthma -Albuterol as needed I spent a total of 50 minutes in direct patient care, including [id number] time with the patient and/or family, reviewing medical records, ordering and reviewing diagnostic tests, and coordinating care with other healthcare providers. This time includes: history taking, physical examination, medical decision making, counseling, ECG interpretation, imaging interpretation, lab interpretation, orders, and education, excluding time spent in the performance of separately billed services. Admission and Anticipated Discharge Date Admission Date: March 18, 2025 Subjective Patient seen and examined at bedside. Patient not doing well today. States that he has uncontrolled pain in left jaw. Describes pain as sharp and shooting in nature. Oxycodone did not help, dilaudid only helped partially. Review of Systems Review of Systems: CONSTITUTIONAL: Patient denies fevers, chills, sweats and weight changes. EYES: Patient denies any visual symptoms. EARS, NOSE, AND THROAT: swollen and painful mouth CARDIOVASCULAR: Patient denies chest pains, palpitations, orthopnea and paroxysmal nocturnal dyspnea. RESPIRATORY: No dyspnea on exertion, no wheezing or cough. GI: No nausea, vomiting, diarrhea, constipation, abdominal pain, hematochezia or melena. : No urinary hesitancy or dribbling. No nocturia or urinary frequency. No abnormal urethral discharge. MUSCULOSKELETAL: No myalgias or arthralgias. NEUROLOGIC: No chronic headaches, no seizures. Patient denies numbness, tingling or weakness. PSYCHIATRIC: Patient denies problems with mood disturbance. No problems with anxiety. ENDOCRINE: No excessive urination or excessive thirst. DERMATOLOGIC: Patient denies any rashes or skin changes. Physical Exam Physical Exam: Gen: A&O 3 NAD HEENT: left jaw swelling, severe tenderness to palpation Neck: Supple, full range of motion, no observable masses, No meningeal sign. Lungs: No Respiratory distress. CV: RRR, no edema. Abdomen: Soft, nondistended, No rebound tenderness. MSK: No joint swelling, no redness. Skin: No rashes, petechiae, lesions. Normal color per patient. Neuro: Normal Gait, Grossly intact. Psych: Appropriate for situation. Results & Data Results & Data Vital Signs (Past 12 Hours) Vital Signs Temp Pulse Resp BP Pulse Ox O2 Del Method 03/21/25 07:36 36.7 C 64 16 136/80 97 Room Air 03/21/25 04:07 36.9 C 67 16 132/66 98 Room Air Laboratory Results -personally reviewed, downtrending leukocytosis, creatinine at baseline Medications Administered Chlorhexidine Gluconate (Chlorhexidine Gluconate 0.12% 480 Ml) 15 ml MT Q4 PRN PRN Reason: Prophylaxis Stop: 04/17/25 11:50 Last Admin: 03/20/25 13:32 Dose: 15 ml Documented By: AMANDA Ampicillin Sodium/Sulbactam Sodium (Unasyn) 3,000 mg in 100 mls @ 200 mls/hr IV Q6H [facility] Stop: 03/30/25 16:44 Last Infusion: 03/21/25 11:01 Dose: Infused Documented By: Admin: 03/21/25 10:23 Dose: 200 mls/hr Documented By: Infusion: 03/21/25 05:30 Dose: Infused Documented By: Admin: 03/21/25 04:11 Dose: 200 mls/hr Documented By: Infusion: 03/21/25 00:02 Dose: Infused Documented By: Admin: 03/20/25 23:01 Dose: 200 mls/hr Documented By: Infusion: 03/20/25 17:54 Dose: Infused Documented By: Admin: 03/20/25 17:21 Dose: 200 mls/hr Documented By: MARTHA
--- NOTE | 2025-03-21 14:40 | Progress Note ---
Date of Service March 21, 2025 Assessment & Plan Admission and Anticipated Discharge Date Admission Date: March 18, 2025 Subjective Post Op infection evaluation 24 hours after re I&D and addition Eva tonsil abscess I&D left side The drainage seems to less pus and more saliva today The infected area looks to be responding to the more aggressive I&D and drain placements Swelling is is now softer than yesterday and there is less surrounding edema No further drainage is noted. Drains functioning well New Cultures still pending Infection is now starting to responded to the antibiotics, extractions and the I and D. ID note appreciated the change in antibiotics I requested that the patient continue with massage, heat and wound care. At this time the area is responding to treatment, I will follow for now Still need in patient care for IV antibiotics and pain control Results & Data Vital Signs (Past 12 Hours) Vital Signs Temp Pulse Resp BP Pulse Ox O2 Del Method 03/21/25 07:36 36.7 C 64 16 136/80 97 Room Air 03/21/25 04:07 36.9 C 67 16 132/66 98 Room Air PG Care Time/CCT Total # of Minutes Spent Total Time Spent with Patient: Total time spent is greater than 50% in coordination of care (as documented) at patient's floor/unit and/or counseling patient: Coding Level of Care Code None
[2025-03-21] MEDS: PREGABALIN 25 MG CAP PO SCH (15:08)
[2025-03-21] MEDS: HYDROmorphone INJ 0.5 MG/0.5 ML SYR IV PRN (16:17)
[2025-03-21] MEDS: LACTATED RINGER'S 1,000 ML IV SCH (16:56)
[2025-03-22 06:53] LABS: Hematocrit (blood only) 33.4 % (42.0-52.0); Hemoglobin 11.2 g/dL (14.0-18.0); Mean Corpuscular Hemoglobin 28.0 pg (25.0-34.0); Mean Corpuscular Volume 83.5 fL (80.0-100.0); Platelet Count 345 K/uL (130-400); RDW Standard Deviation 39.6 fL (36.4-46.3); Red Blood Count 4.00 M/uL (4.70-6.10); White Blood Count 13.28 K/ul (4.8-10.8)
[2025-03-22 07:13] LABS: Anion Gap 5.0 (3-11); Blood Urea Nitrogen 10.0 mg/dl (6-23); Calcium 8.5 mg/dl (8.6-10.3); Carbon Dioxide 32.0 mmol/L (21-32); Chloride 99.0 mmol/L (98-107); Creatinine Clr Calc Pharmacy 128.4 ml/min; Glucose 144.0 mg/dl (70-99(Fasting)); Potassium 3.1 mmol/L (3.5-5.1); Sodium 136.0 mmol/L (136-145)
[2025-03-22] MEDS: POTASSIUM CHLORIDE 10 MEQ TABCR PO STA (10:35)
[2025-03-22] MEDS: POTASSIUM CHLORIDE 20 MEQ/15 ML UDC PO STA (10:50)
[2025-03-22] MEDS: ADVANCED PROBIOTIC 625 MG CAPSULE PO SCH (10:50)
--- NOTE | 2025-03-22 13:17 | Hospitalist Progress Note ---
Date of Service March 22, 2025 Assessment & Plan (1) Facial swelling: Plan: per admitting service notes with addendum: 24-year-old male who is currently in care home with past medical history significant for asthma ,recently had left facial abscess I&D and tooth extraction comes with significant pain at left facial surgical site. Left facial swelling and pain Recently had a I&D of left facial abscess and extraction of 17/18/19/20 and 16th teeth on 03/16/2025 -Patient was previously admitted from 03/15 to 03/16; underwent I&D of the facial abscess and extraction of the teeth. He returned back to the hospital on 03/17 reporting increasing pain. -Wound culture growing MSSA, cutibacterium acnes -Repeat of the facial CT from 03/19 showing interval worsening of the left-sided perimandibular inflammatory changes, rim enhancing abscess centered on left posterior mandible, 4.5 cm phlegmonous mass/developing abscess -involving the left peritonsillar region with mass effect on the adjacent airway. Plan: -POD 1 from repeat incision and drainage -f/u op cultures -ID consult, continue unasyn for now -switch around pain medications: start lyrica 25mg tid for neuropathic pain, increase oxycodone to 10mg q4hr prn with IV dilaudid 1mg q4hr ONLY for breakthrough pain 12/20 still with significant facial edema, tenderness continue IV Zosyn pain meds appreciate Dr. Mccurdy's input History of asthma -Albuterol as needed DVT prophylaxis SCDs Admission and Anticipated Discharge Date Admission Date: March 18, 2025 Subjective seen resting in bed, not in distress still having significant pain over the left lower face- pain level about the same still having some difficulty opening his mouth and chewing no dysphagia no chest pain, dyspnea, palpitations, dizziness no other symptoms Review of Systems Review of Systems: all noted and negative except for above Physical Exam Physical Exam: General- oriented x 3, not in distress, speaks in sentences with no effort or accessory muscle use Eyes- anicteric Face- Left lower face: significant edema. moderate tenderness, pennrose drain in place- draining scant serous fluid Neck- no JVD Lungs- clear breath sounds bilaterally, no rales/wheezes Heart- normal rate, regular rhythm; no murmurs Abdomen- normal bowel sounds, nondistended, soft, nontender Extremities- no pretibial edema, no calf tenderness Neuro- alert, oriented x 3; no gross focal neurologic deficits Skin- warm & dry Results & Data Results & Data Vital Signs (Past 12 Hours) Vital Signs Temp Pulse Resp BP Pulse Ox O2 Del Method 03/22/25 08:12 36.7 C 67 18 113/69 98 Room Air all noted and reviewed including below
[2025-03-22] MEDS ORDERED: CHLORHEXIDINE GLUCONATE 0.12% 480 ML MT PRN (17:18)
[2025-03-23] MEDS: KETOROLAC TROMETHAMINE 15 MG/ML VIAL IV ONE (06:07)
[2025-03-23 06:41] LABS: Hematocrit (blood only) 35.3 % (42.0-52.0); Hemoglobin 11.6 g/dL (14.0-18.0); Immature Granulocytes # (auto) 0.05 K/uL (0.01-0.20); Immature Granulocytes % (auto) 0.5 %; Mean Corpuscular Hemoglobin 27.8 pg (25.0-34.0); Mean Corpuscular Volume 84.4 fL (80.0-100.0); Platelet Count 386 K/uL (130-400); RDW Standard Deviation 40.4 fL (36.4-46.3); Red Blood Count 4.18 M/uL (4.70-6.10); White Blood Count 10.16 K/ul (4.8-10.8)
[2025-03-23 06:58] LABS: Alanine Aminotransferase 17.0 U/L (7-52); Albumin Globulin Ratio 0.8 (0.9-2); Albumin Level 3.2 gm/dl (3.4-5.0); Alkaline Phosphatase 62.0 U/L (34-104); Anion Gap 8.0 (3-11); Bilirubin,Total 0.6 mg/dl (0.2-1.0); Blood Urea Nitrogen 7.0 mg/dl (6-23); Calcium 8.9 mg/dl (8.6-10.3); Carbon Dioxide 29.0 mmol/L (21-32); Chloride 98.0 mmol/L (98-107); Creatinine Clr Calc Pharmacy 136.3 ml/min; Globulin 3.9 gm/dl (2.5-4.0); Glucose 119.0 mg/dl (70-99(Fasting)); Magnesium 2.0 mg/dl (1.7-2.4); Potassium 3.2 mmol/L (3.5-5.1); Sodium 135.0 mmol/L (136-145); Total Protein 7.1 gm/dl (6.0-8.3)
[2025-03-23] MEDS: POTASSIUM CHLORIDE 20 MEQ/15 ML UDC PO SCH (09:20)
[2025-03-23] MEDS: CHLORHEXIDINE GLUCONATE 0.12% 480 ML MT SCH (14:05)
--- NOTE | 2025-03-23 15:31 | Hospitalist Progress Note ---
Date of Service March 23, 2025 Assessment & Plan (1) Facial swelling: Plan: per admitting service notes with addendum: 24-year-old male who is currently in intermediate with past medical history significant for asthma ,recently had left facial abscess I&D and tooth extraction comes with significant pain at left facial surgical site. Left facial swelling and pain Recently had a I&D of left facial abscess and extraction of 17/18/19/20 and 16th teeth on 03/16/2025 -Patient was previously admitted from 03/15 to 03/16; underwent I&D of the facial abscess and extraction of the teeth. He returned back to the hospital on 03/17 reporting increasing pain. -Wound culture growing MSSA, cutibacterium acnes -Repeat of the facial CT from 03/19 showing interval worsening of the left-sided perimandibular inflammatory changes, rim enhancing abscess centered on left posterior mandible, 4.5 cm phlegmonous mass/developing abscess -involving the left peritonsillar region with mass effect on the adjacent airway. Plan: -POD 1 from repeat incision and drainage -f/u op cultures -ID consult, continue unasyn for now -switch around pain medications: start lyrica 25mg tid for neuropathic pain, increase oxycodone to 10mg q4hr prn with IV dilaudid 1mg q4hr ONLY for breakthrough pain 03/22 still with significant facial edema, tenderness continue IV Unasyan pain meds appreciate Dr. Mccurdy's input 03/23 clinically improving facial edema and tenderness improving continue IV Unasyn History of asthma -Albuterol as needed DVT prophylaxis SCDs Disposition Continue IV antibiotics for today Reevaluate tomorrow Admission and Anticipated Discharge Date Admission Date: March 18, 2025 Subjective seen resting in bed, sitting up states facial swelling and pain are improving able to open mouth better chewing is also better no fever/chills Review of Systems Review of Systems: all noted and negative except for above Physical Exam Physical Exam: General- oriented x 3, not in distress, speaks in sentences with no effort or accessory muscle use Eyes- anicteric Neck- no JVD face- L facial edema improving drain in place: no active discharge noted trismus improving oral: no bleeding, discharge, edema Lungs- clear breath sounds BL Heart- normal rate, regular rhythm; no murmurs Abdomen- normal bowel sounds, nondistended, soft, no tender Extremities- no pretibial edema, no calf tenderness Neuro- alert, oriented x 3; no gross focal neurologic deficits Skin- warm & dry Results & Data Results & Data Vital Signs (Past 12 Hours) Vital Signs Temp Pulse Resp BP Pulse Ox O2 Del Method 03/23/25 15:14 36.8 C 66 16 112/68 100 Room Air 03/23/25 07:09 36.6 C 66 16 106/68 95 Room Air all noted and reviewed including below
--- NOTE | 2025-03-23 21:54 | Progress Note ---
Date of Service March 23, 2025 Post Op infection evaluation at 3 days since second I&D The infected is finally starting to improve Swelling is going down and the tissue is starting to soften and go back to normal size and texture. Minimal drainage is noted. I will consider drain removal tomorrow Mar 24 Cultures were reviewed. Infection is finally starting to responded very well to the antibiotics, extractions and the I and D. I requested that the patient continue with massage, heat and wound care. Peridex q 4 hours Mouth opening improved, less pain on swallowing, diet has improved Assessment & Plan Admission and Anticipated Discharge Date Admission Date: March 18, 2025 Results & Data Vital Signs (Past 12 Hours) Vital Signs Temp Pulse Resp BP Pulse Ox O2 Del Method 03/23/25 15:14 36.8 C 66 16 112/68 100 Room Air PG Care Time/CCT Total # of Minutes Spent Total Time Spent with Patient: Total time spent is greater than 50% in coordination of care (as documented) at patient's floor/unit and/or counseling patient: Coding Level of Care Code 22253 SUB INP/OBS CARE 06/03MIN
[2025-03-24 06:35] LABS: Hematocrit (blood only) 35.1 % (42.0-52.0); Hemoglobin 11.6 g/dL (14.0-18.0); Mean Corpuscular Hemoglobin 27.9 pg (25.0-34.0); Mean Corpuscular Volume 84.4 fL (80.0-100.0); Platelet Count 406 K/uL (130-400); RDW Standard Deviation 40.0 fL (36.4-46.3); Red Blood Count 4.16 M/uL (4.70-6.10); White Blood Count 10.70 K/ul (4.8-10.8)
[2025-03-24 07:07] LABS: Anion Gap 7.0 (3-11); Blood Urea Nitrogen 8.0 mg/dl (6-23); Calcium 9.1 mg/dl (8.6-10.3); Carbon Dioxide 32.0 mmol/L (21-32); Chloride 97.0 mmol/L (98-107); Creatinine Clr Calc Pharmacy 134.6 ml/min; Glucose 94.0 mg/dl (70-99(Fasting)); Potassium 3.4 mmol/L (3.5-5.1); Sodium 136.0 mmol/L (136-145)
[2025-03-24] MEDS: SODIUM CHLORIDE 0.9% 1,000 ML IV SCH (10:47)
[2025-03-24] MEDS: KETOROLAC 30 MG/ML VIAL IV ONE (10:47)
--- NOTE | 2025-03-24 12:43 | Progress Note ---
Date of Service March 24, 2025 Assessment & Plan Admission and Anticipated Discharge Date Admission Date: March 18, 2025 Subjective Post Op infection evaluation day 6 The infected area is resolving very well. Swelling is almost gone and the tissue is getting back to normal in size and texture. No further drainage is noted. Upper external Drain was removed, I will remove the oral-facial drain tomorrow AM Infection has responded very well to the antibiotics, extractions and the I and D. I requested that the patient continue with massage, heat and wound care. I feel we can plan discharge Wednesday to [facility] facility on oral antibiotics, oral rinse, soft diet, mild pain Meds and follow up with Dr Mccurdy Plan second drain removal tomorrow ? D?C Wednesday Results & Data Vital Signs (Past 12 Hours) Vital Signs Temp Pulse Resp BP Pulse Ox O2 Del Method 03/24/25 07:39 36.8 C 72 18 104/69 97 Room Air PG Care Time/CCT Total # of Minutes Spent Total Time Spent with Patient: Total time spent is greater than 50% in coordination of care (as documented) at patient's floor/unit and/or counseling patient: Coding Level of Care Code None
--- NOTE | 2025-03-24 12:54 | Hospitalist Progress Note ---
Date of Service March 24, 2025 Assessment & Plan (1) Facial swelling: Plan: per admitting service notes with addendum: 24-year-old male who is currently in [facility] with past medical history significant for asthma ,recently had left facial abscess I&D and tooth extraction comes with significant pain at left facial surgical site. Left facial swelling and pain Recently had a I&D of left facial abscess and extraction of 17/18/19/20 and 16th teeth on 03/16/2025 -Patient was previously admitted from 03/15 to 03/16; underwent I&D of the facial abscess and extraction of the teeth. He returned back to the hospital on 03/17 reporting increasing pain. -Wound culture growing MSSA, cutibacterium acnes -Repeat of the facial CT from 03/19 showing interval worsening of the left-sided perimandibular inflammatory changes, rim enhancing abscess centered on left posterior mandible, 4.5 cm phlegmonous mass/developing abscess -involving the left peritonsillar region with mass effect on the adjacent airway. Plan: -POD 1 from repeat incision and drainage -f/u op cultures -ID consult, continue unasyn for now -switch around pain medications: start lyrica 25mg tid for neuropathic pain, increase oxycodone to 10mg q4hr prn with IV dilaudid 1mg q4hr ONLY for breakthrough pain 03/22 still with significant facial edema, tenderness continue IV Unasyan pain meds appreciate Dr. Mccurdy's input 03/23 clinically improving facial edema and tenderness improving continue IV Unasyn 03/24 edema seems to be gradually improving however, having significant pain today start Toradol 30mg IV q6h prn monitor History of asthma -Albuterol as needed DVT prophylaxis SCDs Disposition Continue IV antibiotics for today Reevaluate tomorrow Admission and Anticipated Discharge Date Admission Date: March 18, 2025 Subjective seen resting in bed, sitting up having significant pain over the L lower face today not sleeping well due to pain trismus about the same as yesterday no dysphagia no fever/chills Review of Systems Review of Systems: all noted and negative except for above Physical Exam Physical Exam: General- oriented x 3, not in distress, speaks in sentences with no effort or accessory muscle use Eyes- anicteric Neck- no JVD Face- (+) moderate edema on the left lower face- drain in place, no active drainage, (+) mild tenderness Lungs- clear breath sounds bilaterally, no rales/wheezes Heart- normal rate, regular rhythm; no murmurs Abdomen- normal bowel sounds, nondistended, soft, nontender Extremities- no pretibial edema, no calf tenderness Neuro- alert, oriented x 3; no gross focal neurologic deficits Skin- warm & dry Results & Data Results & Data Vital Signs (Past 12 Hours) Vital Signs Temp Pulse Resp BP Pulse Ox O2 Del Method 03/24/25 07:39 36.8 C 72 18 104/69 97 Room Air all noted and reviewed including below
[2025-03-24] MEDS: KETOROLAC 30 MG/ML VIAL IV PRN (18:44)
--- NOTE | 2025-03-25 09:15 | Progress Note ---
Date of Service March 25, 2025 Assessment & Plan Admission and Anticipated Discharge Date Admission Date: March 18, 2025 Subjective Post Op infection evaluation day 7 of second admission The infected area has resolved very well. Almost completely resolved, The tonsil and lateral folds of the throat area back to normal anatomy Swelling is about 90% gone and the tissue is almost back to normal in size and texture. No further drainage is noted. ALL Drains are now removed- I pulled the oral-facial drain today. Cultures were reviewed. Infection has responded very well to the antibiotics, extractions and the I and D. I requested that the patient continue with massage, heat and wound care. MUST maintain good oral care At this time the area is well healed and responded well to treatment. I will see him in the AM and plan for discharge back to the [facility] facility with office follow up in 10-12 days Results & Data Vital Signs (Past 12 Hours) Vital Signs Temp Pulse Resp BP Pulse Ox O2 Del Method 03/25/25 07:30 36.4 C L 58 L 14 122/80 100 Room Air 03/24/25 23:15 36.8 C 67 18 114/74 97 Room Air PG Care Time/CCT Total # of Minutes Spent Total Time Spent with Patient: Total time spent is greater than 50% in coordination of care (as documented) at patient's floor/unit and/or counseling patient: Coding Level of Care Code 24118 SUB INP/OBS CARE 06/03MIN
--- NOTE | 2025-03-25 18:04 | Hospitalist Progress Note ---
Date of Service March 25, 2025 Assessment & Plan (1) Facial swelling: Plan: per admitting service notes with addendum: 24-year-old male who is currently in shelter with past medical history significant for asthma ,recently had left facial abscess I&D and tooth extraction comes with significant pain at left facial surgical site. Left facial swelling and pain Recently had a I&D of left facial abscess and extraction of 17/18/19/20 and 16th teeth on 03/16/2025 -Patient was previously admitted from 03/15 to 03/16; underwent I&D of the facial abscess and extraction of the teeth. He returned back to the hospital on 03/17 reporting increasing pain. -Wound culture growing MSSA, cutibacterium acnes -Repeat of the facial CT from 03/19 showing interval worsening of the left-sided perimandibular inflammatory changes, rim enhancing abscess centered on left posterior mandible, 4.5 cm phlegmonous mass/developing abscess -involving the left peritonsillar region with mass effect on the adjacent airway. Plan: -POD 1 from repeat incision and drainage -f/u op cultures -ID consult, continue unasyn for now -switch around pain medications: start lyrica 25mg tid for neuropathic pain, increase oxycodone to 10mg q4hr prn with IV dilaudid 1mg q4hr ONLY for breakthrough pain 03/22 still with significant facial edema, tenderness continue IV Unasyan pain meds appreciate Dr. Mccurdy's input 03/23 clinically improving facial edema and tenderness improving continue IV Unasyn 03/24 edema seems to be gradually improving however, having significant pain today start Toradol 30mg IV q6h prn monitor 03/25 edema much improved continue IV Unasyn PRN Toradol possible dc tomorrow History of asthma -Albuterol as needed DVT prophylaxis SCDs Disposition Continue IV antibiotics for today Reevaluate tomorrow Admission and Anticipated Discharge Date Admission Date: March 18, 2025 Subjective seen resting in bed, not in distress states he is still having some left facial pain, improving trismus improving no dysphagia no other symptoms Review of Systems Review of Systems: all noted and negative except for above Physical Exam Physical Exam: General- oriented x 3, not in distress, speaks in sentences with no effort or accessory muscle use Eyes- anicteric Neck- no JVD Face- very mild edema, L lower face drains removed Lungs- clear BS BL Heart- normal rate, regular rhythm; no murmurs Abdomen- normal bowel sounds, nondistended, soft, nontender Extremities- no pretibial edema, no calf tenderness Neuro- alert, oriented x 3; no gross focal neurologic deficits Skin- warm & dry Results & Data Results & Data Vital Signs (Past 12 Hours) Vital Signs Temp Pulse Resp BP Pulse Ox O2 Del Method 03/25/25 15:04 36.7 C 63 14 109/70 99 Room Air 03/25/25 07:30 36.4 C L 58 L 14 122/80 100 Room Air all noted and reviewed including below
[2025-03-25 19:28] LABS: Anion Gap 3.0 (3-11); Blood Urea Nitrogen 10.0 mg/dl (6-23); Calcium 9.1 mg/dl (8.6-10.3); Carbon Dioxide 29.0 mmol/L (21-32); Chloride 103.0 mmol/L (98-107); Creatinine Clr Calc Pharmacy 121.5 ml/min; Glucose 104.0 mg/dl (70-99(Fasting)); Potassium 4.6 mmol/L (3.5-5.1); Sodium 135.0 mmol/L (136-145)
[2025-03-25] MEDS: KETOROLAC 30 MG/ML VIAL IV PRN (22:17)
[2025-03-25 23:07] VITALS: RESP 16; TEMP 97.7
[2025-03-26] MEDS: ACETAMINOPHEN 1,000 MG/100 ML VIAL IV STA (02:35)
[2025-03-26 06:59] LABS: Anion Gap 4.0 (3-11); Blood Urea Nitrogen 11.0 mg/dl (6-23); Calcium 9.0 mg/dl (8.6-10.3); Carbon Dioxide 29.0 mmol/L (21-32); Chloride 102.0 mmol/L (98-107); Creatinine Clr Calc Pharmacy 141.5 ml/min; Glucose 97.0 mg/dl (70-99(Fasting)); Magnesium 2.1 mg/dl (1.7-2.4); Potassium 4.2 mmol/L (3.5-5.1); Sodium 135.0 mmol/L (136-145)
[2025-03-26 07:59] VITALS: BP 103/68; PULSE 62; O2SAT 97
--- NOTE | 2025-03-26 12:38 | Progress Note ---
Date of Service March 26, 2025 Assessment & Plan Admission and Anticipated Discharge Date Admission Date: March 18, 2025 Subjective Post Op infection evaluation at 8 days The infected area has resolved very well. Swelling is almost completely gone and the tissue is getting back to normal in size and texture. Minimal drainage is noted. still limited opening, given the significant infection the trismus will slowly improve over time I stressed the need to stretch the jaws and massage. On and off pain -- no new infection noted Infection has responded very well to the antibiotics, extractions and the I and D. I requested that the patient continue with massage, heat and wound care. At this time the area is well healed and responded well to treatment, no further hospital treatment needed. OK for discharge today Antibiotics--Augmentin 875 for the next 7-10 days q 12 hours while in [facility] facility We will arrange for out patient follow up Results & Data Vital Signs (Past 12 Hours) Vital Signs Temp Pulse Resp BP Pulse Ox O2 Del Method 03/26/25 07:57 36.5 C 62 16 103/68 97 Room Air PG Care Time/CCT Total # of Minutes Spent Total Time Spent with Patient: Total time spent is greater than 50% in coordination of care (as documented) at patient's floor/unit and/or counseling patient: Coding Level of Care Code 34843 SUB INP/OBS CARE 06/03MIN
--- NOTE | 2025-03-26 14:59 | Discharge Summary ---
Discharge Summary Date of Service March 26, 2025 Principal Dx & Hospital Course #1 = Principal Diagnosis (1) Facial swelling: per admitting service notes with addendum: 24-year-old male who is currently in jail with past medical history significant for asthma ,recently had left facial abscess I&D and tooth extraction comes with significant pain at left facial surgical site. Infection of oral facial left side Lateral tonsil area left floor of the mouth s/p Left Intraoral Incision and Drainage 03/26/25 -I&D of left facial abscess and extraction of 1718/19/20 and 16th teeth on 03/16/2025 -Patient was previously admitted from 03/15 to 03/16; underwent I&D of the facial abscess and extraction of the teeth. He returned back to the hospital on 03/17 reporting increasing pain. -Wound culture growing MSSA, cutibacterium acnes -Repeat of the facial CT from 03/19 showing interval worsening of the left-sided perimandibular inflammatory changes, rim enhancing abscess centered on left posterior mandible, 4.5 cm phlegmonous mass/developing abscess -involving the left peritonsillar region with mass effect on the adjacent airway. Plan: -POD 1 from repeat incision and drainage -f/u op cultures -ID consult, continue unasyn for now -switch around pain medications: start lyrica 25mg tid for neuropathic pain, increase oxycodone to 10mg q4hr prn with IV dilaudid 1mg q4hr ONLY for breakthrough pain 03/22 still with significant facial edema, tenderness continue IV Unasyan pain meds appreciate Dr. Mccurdy's input 03/23 clinically improving facial edema and tenderness improving continue IV Unasyn 03/24 edema seems to be gradually improving however, having significant pain today start Toradol 30mg IV q6h prn monitor 03/25 edema much improved continue IV Unasyn PRN Toradol possible dc tomorrow 03/26 Facial edema mostly resolved Cleared by Dr. Mccurdy for discharge has received IV Unasyn x 6 days while admitted,Continue Augmentin x 7 more days continue probiotics x 2 weeks at least Continue Precedex 4 times daily responded well with Toradol IV for pain control, recommend ibuprofen as needed for pain control Follow-up with Dr. Wanrer Mccurdy in 1 week History of asthma -Albuterol as needed DVT prophylaxis SCDs Encouraged to ambulate frequently Disposition Return to [facility] facility today Discussed with Dr. Regla Cordova Notes For Next Care Provider Medication Changes From Visit Augmentin 875 mg twice a day x 2 weeks Probiotics timesx 2 to 4 weeks Peridex 4 times daily As needed ibuprofen Admission HPI Per Admitting Provider 24-year-old male who is currently in jail with past medical history significant for asthma ,recently had left facial abscess I&D and tooth extraction comes with significant pain at left facial surgical site. Patient says he could not eat anything today because he could not open the mouth. Having significant pain. Denies any fevers. Denies shortness of breath. Denies cough. No headache or runny nose. No chest pain or shortness of breath. Somewhat nauseous and attributes it to not eating. Has some abdominal discomfort. Normal bowel and bladder movements. Hemodynamics okay. Past medical history. As mentioned above. Past surgical history. Denies any surgeries. Social history. History of smoking weed and last time he smoked was year ago. Denies any alcohol use. Family history. Denies any family history. Admission Exam Per Admitting Provider General-Not in distress Head- Left face is swollen, dressing intact Eyes- PERRL ENT- Not able to open the mouth Neck- supple, no JVD. Lungs- clear to auscultation no wheezing or crackles Heart- regular rhythm; no murmur, no gallop. Abdomen- normal bowel sounds, soft, nontender, no distension Extremities- no pretibial edema, no erythema seen Neuro- alert, oriented PERRL, no facial palsy; no dysarthria; moves extremities Discharge Exam General- oriented x 3, not in distress, speaks in sentences with no effort or accessory muscle use Eyes- anicteric Neck- no JVD Face- very mild edema, L lower face drains removed Lungs- clear BS BL Heart- normal rate, regular rhythm; no murmurs Abdomen- normal bowel sounds, nondistended, soft, nontender Extremities- no pretibial edema, no calf tenderness Neuro- alert, oriented x 3; no gross focal neurologic deficits Skin- warm & dry Updated Medication List Medication Instructions Recorded Confirmed Type L.acidop,casei,lactis,rham-B.lact,goldy 1 cap PO DAILY 14 days #14 caps 03/26/25 Rx 625 mg (10 billion cell) capsule (Advanced Probiotic) amoxicillin 875 mg-potassium 1 tab PO BID 7 days #20 tabs 03/26/25 Rx clavulanate 125 mg tablet chlorhexidine gluconate 0.12 % 15 ml MT QID 7 days #600 mL 03/26/25 Rx mouthwash pregabalin 25 mg capsule 25 mg PO TID 7 days #21 caps 03/26/25 Rx Hospital Stay Data Consultations 03/17/25 23:40 Consult Oromaxillofacial Surgery Routine 03/18/25 00:42 ED Decision to Admit Stat 03/20/25 07:40 Consult Infectious Diseases Routine Procedures Performed Operation Date: 03/20/25 07:00 Actual Procedures p Left Intraoral Incision and Drainage(Left) - Warner Mccurdy, DMD Diagnostic Imagining Performed Laboratory Results WBC 10.70 K/ul (4.8-10.8) 03/24/25 05:29 RBC 4.16 M/uL (4.70-6.10) L 03/24/25 05:29 Hgb 11.6 g/dL (14.0-18.0) L 03/24/25 05:29 Hct 35.1 % (42.0-52.0) L 03/24/25 05:29 MCV 84.4 fL (80.0-100.0) 03/24/25 05:29 MCH 27.9 pg (25.0-34.0) 03/24/25 05:29 MCHC 33.0 g/dL (32.0-36.0) 03/24/25 05:29 RDW Std Deviation 40.0 fL (36.4-46.3) 03/24/25 05:29 RDW Coeff of Rashaad 12.9 % (11.5-14.5) 03/24/25 05:29 Plt Count 406 K/uL (130-400) H 03/24/25 05:29 MPV 9.6 fL (9.4-12.4) 03/24/25 05:29 Immature Gran % (Auto) 0.5 % 03/23/25 05:23 Neut % (Auto) 58.2 % 03/23/25 05:23 Lymph % (Auto) 32.6 % 03/23/25 05:23 [place] % (Auto) 6.4 % 03/23/25 05:23 Eos % (Auto) 1.8 % 03/23/25 05:23 Baso % (Auto) 0.5 % 03/23/25 05:23 Neut # (Auto) 5.92 K/uL (1.40-6.50) 03/23/25 05:23 Lymph # (Auto) 3.31 K/uL (1.20-3.40) 03/23/25 05:23 [place] # (Auto) 0.65 K/uL (0.11-0.59) H 03/23/25 05:23 Eos # (Auto) 0.18 K/uL (0.00-0.50) 03/23/25 05:23 Baso # (Auto) 0.05 K/uL (0.00-0.20) 03/23/25 05:23 Immature Gran # (Auto) 0.05 K/uL (0.01-0.20) 03/23/25 05:23 Sodium 135 mmol/L (136-145) L 03/26/25 05:55 Potassium 4.2 mmol/L (3.5-5.1) 03/26/25 05:55 Chloride 102 mmol/L (98-107) 03/26/25 05:55 Carbon Dioxide 29 mmol/L (21-32) 03/26/25 05:55 Anion Gap 4 (3-11) 03/26/25 05:55 BUN 11 mg/dl (6-23) 03/26/25 05:55 Creatinine 0.79 mg/dl (0.6-1.4) 03/26/25 05:55 Est Cr Clr Drug Dosing 141.5 ml/min 03/26/25 05:55 eGFR 127.22 03/26/25 05:55 BUN/Creatinine Ratio 13.9 (10-20) 03/26/25 05:55 Glucose 97 mg/dl (70-99(Fasting)) 03/26/25 05:55 Lactate 1.1 mmol/L (0.4-2.0) 03/17/25 21:26 Calcium 9.0 mg/dl (8.6-10.3) 03/26/25 05:55 Magnesium 2.1 mg/dl (1.7-2.4) 03/26/25 05:55 Total Bilirubin 0.6 mg/dl (0.2-1.0) 03/23/25 05:23 AST 23 U/L (13-39) 03/23/25 05:23 ALT 17 U/L (7-52) 03/23/25 05:23 Alkaline Phosphatase 62 U/L (34-104) 03/23/25 05:23 Total Protein 7.1 gm/dl (6.0-8.3) 03/23/25 05:23 Albumin 3.2 gm/dl (3.4-5.0) L 03/23/25 05:23 Globulin 3.9 gm/dl (2.5-4.0) 03/23/25 05:23 Albumin/Globulin Ratio 0.8 (0.9-2) L 03/23/25 05:23 Nasal Screen MRSA (PCR) Negative (Negative) 03/18/25 22:[address] 03/17/25 21:19 Exam(s): CT NECK SOFT TISSUE With Contrast IV Amt: 90 ml optiray 320 EXAM: CT Neck With Intravenous Contrast CLINICAL HISTORY: facial swelling. TECHNIQUE: Axial computed tomography images of the neck with intravenous contrast. CTDI is 17.93 mGy and DLP is 431.61 mGy-cm. Automated exposure control was utilized for the study. A dose lowering technique was utilized adhering to the principles of ALARA. CONTRAST: Patient received 90 ml optiray 320 of IV contrast COMPARISON: No relevant prior studies available. FINDINGS: Oropharynx: The tonsils are normal in caliber and symmetric. No peritonsillar abscess. Hypopharynx: Unremarkable. Larynx: The epiglottis is maintained. Trachea: Unremarkable. Retropharyngeal space: There is minimal tracking edema in the prevertebral soft tissues at the level of C2 through C4 level. No rim enhancement. Submandibular/parotid glands: There is edema surrounding the left submandibular gland. Glands are otherwise normal in size. Thyroid: Unremarkable. No enlarged or calcified nodules. Bones/joints: Asymmetric enlargement with infiltrating, which demonstrates incomplete marginal enhancement along the left medial pterygoid deep to the angle of the left mandible with the largest component of crescentic, partially encapsulating fluid noted medially measuring 7 mm in diameter. The fluid extends over a length of approximately 4.8 cm from the level of the inferior margin of the mandible towards the pterygoids cranially. Soft tissues: There is a presumed surgical sponge in the lateral periorbital region extending to the deep margin of the left masseter muscle. There is also a superficial surgical drain noted anterior to the masseter muscle at the left lateral periorbital region. Superficial fat stranding noted throughout the left perioral region, the abrasive worker space and tracking along the left platysma muscle. No superficial loculated fluid collection identified. Vasculature: No acute findings. Lymph nodes: Presumably reactive left level 1 submandibular lymph nodes measuring up to 8 mm in diameter. Lung apices: Unremarkable as visualized. IMPRESSION: 1. Asymmetric enlargement with infiltrating, which demonstrates incomplete marginal enhancement along the left medial pterygoid deep to the angle of the left mandible with the largest component of crescentic, partially encapsulating fluid noted medially measuring 7 mm in diameter. The fluid extends over a length of approximately 4.8 cm from the level of the inferior margin of the mandible towards the pterygoids cranially. 2. There is a presumed surgical sponge in the lateral periorbital region extending to the deep margin of the left masseter muscle. There is also a superficial surgical drain noted anterior to the masseter muscle at the left lateral periorbital region. Superficial fat stranding noted throughout the left perioral region, the abrasive worker space and tracking along the left platysma muscle. No superficial loculated fluid collection identified. 3. Submandibular parotid glands. There is edema surrounding the left submandibular gland. Left submandibular sialoadenitis is a differential consideration. However, this may also be extension of tracking fluid from the left medial pterygoid. 4. There is minimal tracking edema in the prevertebral soft tissues at the level of C2 through C4 level. No rim enhancement. Electronically signed by: Vinay Montero MD 03/17/25 23:[address] 03/19/25 12:35 CT facial bones w con CLINICAL HISTORY: continued drainage of pus COMPARISON STUDY: 03/15/2025 FINDINGS: The patient was scanned in a dynamic helical fashion during intravenous administration of 94 cc of Optiray 320. There is persistent left cervical lymphadenopathy minimally more prominent on the prior study and likely reactive. There is evidence for interval extraction of multiple left posterior mandibular teeth. There is a left-sided erin-mandibular drain. There are increasing inflammatory changes centered on the left hemimandible. These extend to the left peritonsillar region where there is a 4.5 cm phlegmonous mass/developing abscess. There is mass effect on the adjacent airway . There also phlegmonous changes within the soft tissues superficial to the surgical bed. There is also a 19 mm rim-enhancing collection centered on the left mandibular angle consistent with an abscess. There is mild enlargement of the left submandibular gland likely reactive. Note is made of poor dentition with multiple additional right-sided dental caries IMPRESSION: 1. Interval resection of multiple left posterior mandibular teeth 2. Interval worsening of the left-sided perimandibular inflammatory changes. 3. There is now evidence for a rim-enhancing abscess centered on the left posterior mandible. 4. 4.5 cm phlegmonous mass/developing abscess involving the left peritonsillar region with mass effect on the adjacent airway 5. Interval placement of a left-sided perimandibular drain. There are progressive inflammatory changes within the soft tissues superficial to the left hemimandible. 6. Left-sided cervical lymphadenopathy likely reactive ACT 112: Negative or not required by law. Electronically signed by: Michael Langston M.D. 03/19/2025 1:55 PM Pending Results Patient Have Any Pending Studies at Discharge: No Discharge Instructions Given to Patient (Per Discharging Provider) ADDITIONAL ACTIVITY RECOMMENDATIONS: AUGMENTIN 875 q 12 hours for the next 10 days PERIDEX RINSE twice a day Diet as tolerated * [place] teeth after every meal. It is very important to keep your mouth clean to prevent infection. * Starting tonight rinse with the Peridex as directed then 2 x a day * it is very important to keep well hydrated, this prevents fever and possible dry socket pain SPECIAL CARE INSTRUCTIONS: You must keep your mouth very clean to prevent re infection Massage your face and continue to stretch your jaws to increase mouth opening * Return to the office for a follow up check up on: We will arrange with the facilaity a follow up for 7-10 days * office address--[address] phone # [phone] Total Time Total Time Spent Total Time Spent (In Minutes): 40 minutes
--- NOTE | 2025-03-31 22:20 | Operative Report ---
PG Post Operative Report Pre & Post Diagnosis Operation Date: 03/20/25 07:00 Pre-Op Diagnosis: Facial infection, trismus Post-Op Diagnosis: Facial infection, trismus I identified the patient and participated in the time-out.: Yes Procedure Operation Date: 03/20/25 07:00 Actual Procedures p Left Intraoral Incision and Drainage(Left) - Warner Mccurdy DMD Surgeon Warner Mccurdy, KALIN Tick Eradicator none Estimated Blood Loss 6 Findings Consistent with Post-Op Diagnosis Specimens I&D with C&S Drains 1/2 [place] left side Anesthesia Type General Complications none Disposition Accompanied Patient To Recovery: Yes Indications development of left erin tonsil infection and re infection of left infratemporal and superior temporal infection Description of Procedure PG Post Operative Report Pre & Post Diagnosis PG Post Operative Report Pre & Post Diagnosis Indications ACUTE SUPERVISOR INSPECTION ROOM LEFT SIDE EXTRAORAL I&D SUPEROTEMPORAL ABSCESS INTRAORAL MASSETER SPACE ABSCESS Description of Procedure Actual Procedures p Incision and Drainage of the LEFT Peritonsillar Abscess - Warner Mccurdy DMD EXTRAORAL I&D SUPEROTEMPORAL ABSCESS INTRAORAL MASSETER SPACE ABSCESS ICD 10 Peritonsillar abscess J36 ICD 10 Temporal space abscess L02.811 ICD 10 Vestibular and masseter space abscess K12.2 CPT Drainage of Peritonsillar abscess (LEFT ) 80352 CPT INTRAORAL I&D OF LEFT VESTIBULAR SPACE ABSCESS 4O801 CPT EXTRAORAL I&D SUPEROTEMPORAL,TEMPORAL AND SUPERVISOR TWISTING DEPARTMENT SPACE ABSCESS 24140 Once cleared for surgery general anesthesia was achieved, the eyes were protected by the anesthesia dept criteria.A time out was take for patient ID, antibiotics, equipment and position verification once all agreed the procedure began.Local anesthesia using Marcaine with a vasoconstrictor ( 1.8 ml per site) given into LEFT soft palate and around the swollen tonsil A throat pack was placed after the oral cavity was irrigated with saline. Once a surgical level of anesthesia was obtained and the local anesthesia was given time for the blocks the surgery was started. I turned my attention to the infection which was located in LEFT posterior soft palate and tonsil area.The LEFT tonsil was grossly infected and enlarged and was touching the uvulae. Incision and Drainage Right Peritonsillar abscess CPT 80914 Using a 15 blade an incision was made lateral to the swollen tonsil fold and medial to the very necrotic and swollen tonsil. Once the incision was made a lot of pus extruded from the site. This drainage was cultured for anaerobic and aerobic bacteria. A curved hemostat was carefully placed into the infected erin tonsil space along the medial and lateral aspects of the tonsil Some further drainage was now allowed to escape. I palpated the tonsil and soft palate and lateral area and no further drainage was expressed. The area was irrigated with at least 100 ml of NS solution. Given all the manipulation and the necrotic nature of of the large swollen right tonsil the tissue was very irritated and required a few 3-0 chronic sutures be placed to prevent any possibility of post op bleeding. Extraoral Incision and Drainage CPT 09306 EXTRAORAL I&D SUPEROTEMPORAL,TEMPORAL AND SUPERVISOR TWISTING DEPARTMENT SPACE ABSCESS Using a 15 blade an incision was made in the dependent area of the swollen cheek and supratemporal area. Once the incision was made a lot of pus extruded from the site. This drainage was cultured for anaerobic and aerobic bacteria. A curved hemostat was carefully placed superior into the infected space to drain the superotemporal space. To gain access to the pocket of pus in the supratemporal area another incision was made. This allowed further drainage to escape. I palpated the face and cheek area and no further drainage was expressed. The area was irrigated with at least 100 ml of NS solution. I now placed a 1/2 inch [place] drain up into the supratemporal space and sutured the drain in place with a few 3-0 nylon sutures. Intraoral Incision and Drainage CPT 4O801 INTRAORAL I&D OF LEFT VESTIBULAR SPACE ABSCESS Using a 15 blade an incision was made in the dependent area of the swollen vestibular space and mandibular space abscess. Once the incision was made a lot of pus extruded from the site. This drainage was cultured for anaerobic and aerobic bacteria. A curved hemostat was carefully placed posterior into the infected space to drain the mandible space. I palpated the face and cheek area and no further drainage was expressed. The area was irrigated with at least 100 ml of NS solution. I now placed a 1/2 inch [place] drain up into the mandibular and vestibule space and sutured the drain extraoral in place with a few 3-0 nylon sutures. This drain was made a through and through drain from the masseteric space abscess to the dependent area extraorally where I drained the temporal and superotemporal area abscess. Once this was completed there was no bleeding or drainage. I also inspected the left tonsil, it was large but did not show any signs of abscess. I inspected the sites to insure all bleeding was controlled. I removed the throat pack and suctioned the throat. . All instrument and sponge count was correct. The patient was allowed to awake from the anesthesia. Once full awake the anesthesia tube was removed and the patient was taken to the recovery room with all vital sign stable. The patient tolerated the surgery very well. I will follow the patient in the hospital and in my office, Rx and instructions will be given upon discharge. I attest to the content of the Intraoperative Record and any orders documented therein. Any exceptions are noted below.
== END 2025-03-26 16:02 | DRG 857 ==
LOC: ED 21:05 → SUATTDRO 03-18 01:30 → 3E 03-18 01:30